=== PATIENT | female | born 1960 | race American Indian/Alaskan Native ===

== ENCOUNTER 2018-08-27 15:58 | Inpatient (IN) | payer MEDICAID ==
--- NOTE | 2018-08-27 16:22 | Emergency Department Report ---
Blank Doc - Documentation Documentation: 58 y o female with GLF that happened today states she was sitting down on a chair and had a syncopa; episode head abrasions HEAD CT, labs main
[2018-08-27] MEDS ORDERED: XYLOCAINE 2% INFILTRATI ONE (16:46)
[2018-08-27] MEDS ORDERED: NACL 0.9% IR ONE (16:46)
--- NOTE | 2018-08-27 16:48 | Emergency Department Report ---
ED General Adult HPI - General Chief complaint: Head Injury Stated complaint: FACE INJURY Time Seen by Provider: 08/27/18 16:16 Source: patient, family, RN notes reviewed, old records reviewed Mode of arrival: Ambulatory Limitations: Physical Limitation, Other (patient is hard of hearing. Patient is a poor historian. Family is poor historian.) - History of Present Illness Initial comments: Primary care Dr.: Dr. Matthews : Past medical history: Schizophrenia, hypertension, high cholesterol, question COPD versus asthma, question neuropathic pain, she does not know her past medical history. Her son does not know her past medical history. Patient also very hard of hearing. This is a 58-year-old female. The patient is not known to this provider previously. The patient presents to the emergency room after unresponsive event and complaint of syncope. Patient states she was sitting down, and then lost consciousness. She states that her bilateral knees have been hurting her. She cannot describe the nature of the pain. She cannot describe radiation of the pain. She cannot describe exacerbating or relieving factors. She reports that she was sitting down and that she "fell out." She endorses a headache and chest pain. She indicates the headache is right- sided, but points the left side of her head. She cannot describe the nature of her headache. She cannot describe how quickly the headache started. She indicates no neck pain. She complains of chest pain. She points to the center of her chest. She thinks the chest pain has been present since this morning. She is not certain. She is not able to describe the nature of her chest pain. She denies shortness of breath. She denies abdominal pain. She denies urinary symptoms. She denies fevers, rash. Patient admitted to this hospital in 2015 for unprovoked syncope. Had unremarkable echocardiogram, an unremarkable duplex. She had an elevated d- dimer, but did not appear to be further evaluated. Patient does not know her medications. Her son, who is at the bedside, does not think that her medications haven't changed or adjusted recently, and he is not certain. As per old medical records, completed tetanus vaccination series in 2015. -: Sudden Location: head, chest Radiation: other Quality: other Consistency: other Improves with: other Worsens with: other Associated Symptoms: confusion, chest pain, headaches, syncope - Related Data Home Medications Medication Instructions Recorded Confirmed Last Taken Albuterol Sulfate [Proventil Hfa] 1 puff IH TID PRN 08/27/18 08/27/18 Unknown Benztropine 2 mg PO DAILY 08/27/18 08/27/18 Unknown Cariprazine HCl [Vraylar] 4.5 mg PO DAILY 08/27/18 08/27/18 Unknown Citalopram [celeXA] 20 mg PO QDAY 08/27/18 08/27/18 Unknown Fesoterodine Fumarate ER [Toviaz 4 mg PO DAILY 08/27/18 08/27/18 Unknown ER] Furosemide [Lasix TAB] 40 mg PO QDAY 08/27/18 08/27/18 Unknown Gabapentin [Neurontin] 300 mg PO BID 08/27/18 08/27/18 Unknown Paliperidone Palmitate(Nf) [Invega 234 mg IM Q3W 08/27/18 08/27/18 Unknown Sustenna(Nf)] Potassium Chloride [K-Dur] 20 meq PO QDAY 08/27/18 08/27/18 Unknown Ranitidine HCl [Zantac] 150 mg PO DAILY 08/27/18 08/27/18 Unknown Sertraline [Zoloft] 50 mg PO QDAY 08/27/18 08/27/18 Unknown Simvastatin 20 mg PO DAILY 08/27/18 08/27/18 Unknown chlorproMAZINE [Thorazine] 50 mg PO BID 08/27/18 08/27/18 Unknown Allergies Allergy/AdvReac Type Severity Reaction Status Date / Time No Known Allergies Allergy Verified 08/27/18 16:08 ED Review of Systems ROS: Stated complaint: FACE INJURY Other details as noted in HPI Comment: Unobtainable due to pts medical conditions Constitutional: denies: fever Eyes: denies: eye discharge ENT: denies: congestion Respiratory: denies: cough Cardiovascular: chest pain, syncope Gastrointestinal: denies: vomiting Genitourinary: denies: dysuria Musculoskeletal: joint swelling Skin: lesions, other (abrasions, nasal laceration) Neurological: headache, weakness, confusion Psychiatric: anxiety ED Past Medical Hx - Past Medical History Previous Medical History?: Yes Hx Hypertension: Yes Hx Psychiatric Treatment: Yes (schizophrenia) Additional medical history: ALTURAS - Social History Smoking Status: Never Smoker - Medications Home Medications: Home Medications Medication Instructions Recorded Confirmed Last Taken Type Albuterol Sulfate [Proventil Hfa] 1 puff IH TID PRN 08/27/18 08/27/18 Unknown History Benztropine 2 mg PO DAILY 08/27/18 08/27/18 Unknown History Cariprazine HCl [Vraylar] 4.5 mg PO DAILY 08/27/18 08/27/18 Unknown History Citalopram [celeXA] 20 mg PO QDAY 08/27/18 08/27/18 Unknown History Fesoterodine Fumarate ER [Toviaz 4 mg PO DAILY 08/27/18 08/27/18 Unknown History ER] Furosemide [Lasix TAB] 40 mg PO QDAY 08/27/18 08/27/18 Unknown History Gabapentin [Neurontin] 300 mg PO BID 08/27/18 08/27/18 Unknown History Paliperidone Palmitate(Nf) [Invega 234 mg IM Q3W 08/27/18 08/27/18 Unknown History Sustenna(Nf)] Potassium Chloride [K-Dur] 20 meq PO QDAY 08/27/18 08/27/18 Unknown History Ranitidine HCl [Zantac] 150 mg PO DAILY 08/27/18 08/27/18 Unknown History Sertraline [Zoloft] 50 mg PO QDAY 08/27/18 08/27/18 Unknown History Simvastatin 20 mg PO DAILY 08/27/18 08/27/18 Unknown History chlorproMAZINE [Thorazine] 50 mg PO BID 08/27/18 08/27/18 Unknown History ED Physical Exam - General Limitations: No Limitations, Other (patient is a poor historian.) General appearance: alert, in no apparent distress - Head Head exam: Present: normocephalic, other (there is a frontal hematoma.) - Eye Eye exam: Present: normal appearance, PERRL, EOMI, other (visual acuity intact to finger counting, color perception, reading at a close distance). Absent: n ystagmus - ENT ENT exam: Present: normal orophraynx, mucous membranes moist, TM's normal bilaterally, normal external ear exam, other (there is no nasal septal hematoma. There is no hemotympanum.). Absent: normal exam (there is an anterior 1 cm linear nasal laceration) - Neck Neck exam: Present: normal inspection, full ROM. Absent: tenderness, meningismus - Respiratory Respiratory exam: Present: normal lung sounds bilaterally. Absent: respiratory distress - Cardiovascular Cardiovascular Exam: Present: regular rate, normal rhythm, normal heart sounds. Absent: bradycardia, tachycardia, irregular rhythm, systolic murmur, diastolic murmur, rubs, gallop - GI/Abdominal GI/Abdominal exam: Present: soft. Absent: distended, tenderness, guarding, rebound, rigid, pulsatile mass - Extremities Exam Extremities exam: Present: normal inspection, full ROM, other (2+ pulses noted in the bilateral upper, lower extremities. Compartments soft. No long bony tenderness. The pelvis is stable.). Absent: joint swelling, calf tenderness - Back Exam Back exam: Present: normal inspection, full ROM. Absent: tenderness, CVA tend erness (R), CVA tenderness (L), paraspinal tenderness, vertebral tenderness - Neurological Exam Neurological exam: Present: alert, other (Extraocular movements intact. Tongue midline. No facial droop. Facial sensation intact to light touch in the V1, V2, V3 distribution bilaterally. 5 and 5 strength in 4 extremities.. Sensation is intact to light touch in 4 extremities.). Absent: motor sensory deficit - Psychiatric Psychiatric exam: Present: flat affect - Skin Skin exam: Present: warm, abrasion, ecchymosis ED Course Vital Signs 08/27/18 08/27/18 16:18 19:00 Temperature 98.3 F 98 F Pulse Rate 88 80 Respiratory 14 14 Rate Blood Pressure 108/66 Blood Pressure 134/68 [Right] O2 Sat by Pulse 97 99 Oximetry - Reevaluation(s) Reevaluation #1: 08/27/18 18:19 Differential diagnosis, including not limited to: Orthostasis, vagal event, structural cardiac disease, pneumonia, pulmonary embolus, acute coronary syndrome, intracranial injury, cervical spine injury, urinary tract infection, thyroid derangement, superficial abrasions, laceration Assessment and plan: 58-year-old female, poor historian, with episode of syncope, chest pain, headache. Patient is alert to name, follows commands, and currently has an NIH score of 0. GCS of 15. Does not appear to be clinically intoxicated. Most likely poor historian, and probable chronic disorganization likely secondary to chronic psychiatric disease. She is not tachycardic and she is not hypoxic. However, given her unexplained syncope, history o elevated d-dimer, we will obtain CT scan of the chest to exclude pulmonary embolus. We will obtain CT scan of the brain, cervical spine to exclude traumatic disease. Screening laboratory studies have been requested, and so far are unremarkable. EKG nonspecific, abnormal, appears unchanged from prior. Urinalysis, CBC is pending. Laceration is repaired. I have discussed that we recommended medical admission to the hospital once for diagnostics have resulted, assuming no traumatic injuries identified that would require transfer. This was specifically discussed with the patient's son, who verbalized understanding. Reevaluation #2: 08/27/18 18:[address] scan of the brain shows no acute intracranial injury. Scalp hematoma noted, consistent with exam. X-ray the chest formally interpreted is unremarkable. Reevaluation #3: 08/27/18 19:48 CT scan of the chest negative for acute disease. Incidental findings noted. CT scan of the cervical spine negative for traumatic disease. Incidental findings noted. CT scan of the facial bones negative for significant findings, expected post traumatic findings noted. Resting comfortable, and in no acute distress. Hospital physician is paged to arrange admission. Reevaluation #4: 08/27/18 20:27 DR Ford to admit - EJ/Peripheral Line Arm L Time Out Performed: Yes Indications: nurses unable to establis Skin Cleansed in Sterile Fashion: Yes Size: 20 Dressing Placed: Tegaderm Patient Tolerated Procedure: well - Laceration /Wound Repair Upper Anterior Face Wound Location: face (proximal aspect of nose) Wound Length (cm): 1 Wound's Depth, Shape: linear, contused tissue Wound Explored: clean Irrigated w/ Saline (ccs): 250 Betadine Prep?: No Anesthesia: 1% Lidocaine Volume Anesthetic (ccs): 1 Wound Debrided: minimal Suture Size/Type: 5:0 Number of Sutures: 2 Layer Closure?: No Sterile Dressing Applied?: Yes ED Medical Decision Making - Lab Data Result diagrams: 08/27/18 18:14 08/27/18 17:12 Vital Signs 08/27/18 16:18 Temperature 98.3 F Pulse Rate 88 Respiratory 14 Rate Blood Pressure 108/66 O2 Sat by Pulse 97 Oximetry Lab Results 08/27/18 08/27/18 08/27/18 Range/Units 17:12 17:12 17:12 PT 13.0 (12.2-14.9) Sec. INR 0.93 (0.87-1.13) APTT 20.0 L (24.2-36.6) Sec. Sodium 134 L (137-145) mmol/L Potassium 4.7 (3.6-5.0) mmol/L Chloride 103.7 (98-107) mmol/L Carbon Dioxide 20 L (22-30) mmol/L Anion Gap 15 mmol/L BUN 16 (7-17) mg/dL Creatinine 0.9 (0.7-1.2) mg/dL Estimated GFR > 60 ml/min BUN/Creatinine Ratio 18 % Glucose 103 H (65-100) mg/dL Calcium 8.6 (8.4-10.2) mg/dL Magnesium (1.7-2.3) mg/dL Total Creatine Kinase (30-135) units/L Troponin T (0.00-0.029) ng/mL TSH (0.270-4.200) mlU/mL Salicylates (2.8-20.0) mg/dL Acetaminophen (10.0-30.0) ug/mL Plasma/Serum Alcohol < 0.01 (0-0.07) % 08/27/18 08/27/18 08/27/18 Range/Units 17:17 17:17 17:17 PT (12.2-14.9) Sec. INR (0.87-1.13) APTT (24.2-36.6) Sec. Sodium (137-145) mmol/L Potassium (3.6-5.0) mmol/L Chloride (98-107) mmol/L Carbon Dioxide (22-30) mmol/L Anion Gap mmol/L BUN (7-17) mg/dL Creatinine (0.7-1.2) mg/dL Estimated GFR ml/min BUN/Creatinine Ratio % Glucose (65-100) mg/dL Calcium (8.4-10.2) mg/dL Magnesium 1.90 (1.7-2.3) mg/dL Total Creatine Kinase 59 (30-135) units/L Troponin T < 0.010 (0.00-0.029) ng/mL TSH 1.190 (0.270-4.200) mlU/mL Salicylates < 0.3 L (2.8-20.0) mg/dL Acetaminophen (10.0-30.0) ug/mL Plasma/Serum Alcohol (0-0.07) % 08/27/18 Range/Units 17:17 PT (12.2-14.9) Sec. INR (0.87-1.13) APTT (24.2-36.6) Sec. Sodium (137-145) mmol/L Potassium (3.6-5.0) mmol/L Chloride (98-107) mmol/L Carbon Dioxide (22-30) mmol/L Anion Gap mmol/L BUN (7-17) mg/dL Creatinine (0.7-1.2) mg/dL Estimated GFR ml/min BUN/Creatinine Ratio % Glucose (65-100) mg/dL Calcium (8.4-10.2) mg/dL Magnesium (1.7-2.3) mg/dL Total Creatine Kinase (30-135) units/L Troponin T (0.00-0.029) ng/mL TSH (0.270-4.200) mlU/mL Salicylates (2.8-20.0) mg/dL Acetaminophen < 5.0 L (10.0-30.0) ug/mL Plasma/Serum Alcohol (0-0.07) % - EKG Data -: EKG Interpreted by Me EKG shows normal: sinus rhythm Rate: normal - EKG Data 08/27/18 18:22 EKG shows normal sinus, 80 beats minute, normal axis, QTC within normal limits, atrial enlargement, abnormal EKG, not consistent with ST elevation myocardial infarction, unchanged from prior EKG from December 2014. - Radiology Data Radiology results: image reviewed interpreted by me: X-ray the chest appears to be unremarkable. Print Report Referring Physician: SETH TORRES Patient Name: NISHA SELF Date of : 1960 Sex: Female Report Date: 2018-08-27 Report Status: Finalized Findings [address] [address] Cat Scan Report Signed Patient: NISHA SELF MR#: [id number] : 1960 Acct:[id number] Age/Sex: 58 / F ADM Date: 08/27/18 Loc: ED Attending Dr: Ordering Physician: SETH TORRES MD Date of Service: 08/27/18 Procedure(s): CT facial bones wo con Accession Number(s): [id number] cc: SETH TORRES MD PROCEDURE: CT FACIAL BONES WO CON TECHNIQUE: Spiral CT imaging of the facial bones was obtained without the use of IV contrast. Computer generated sagittal and coronal reconstructions were created. HISTORY: facial trauma. Pain. COMPARISONS: None FINDINGS: No acute facial fractures are identified. Soft tissue swelling is seen over the central aspect of the forehead. Small subcutaneous gas densities are seen adjacent to the nasal bone. There may be lacerations or puncture wound present. No definite fracture is seen in this location. The orbits, zygomas and zygomatic arches as well as the beatty of the paranasal sinuses and mandible appear intact. There is mild mucosal thickening and a small amount of fluid in the left maxillary sinus. I cannot exclude mild acute sinusitis. The paranasal sinuses otherwise are clear. IMPRESSION: No facial fractures are identified. Soft tissue swelling seen overlying the forehead as described. Small gas densities seen within the subcutaneous tissues near the bridge of the nose. There may be lacerations present. No foreign bodies or fracture is seen in this area. Left maxillary sinus disease as described. I cannot exclude mild acute sinusitis.. This document is electronically signed by Allen Cabral MD., August 27 2018 07:19:12 PM ET Transcribed By: DFN Dictated By: ALLEN CABRAL MD Electronically Authenticated By: ALLEN CABRAL MD Signed Date/Time: 08/27/181920 Critical care attestation.: If time is entered above; I have spent that time in minutes in the direct care of this critically ill patient, excluding procedure time. ED Disposition Clinical Impression: Syncope, Chest pain, Nasal laceration Disposition: OP ADMIT IP TO THIS HOSP Is pt being admited?: Yes Does the pt Need Aspirin: Yes Condition: Stable Instructions: Chest Pain (ED), Syncope (ED) Referrals: ELMO CLEMENTS MD [Primary Care Provider] - 3-5 Days
[2018-08-27] MEDS ORDERED: NACL 0.9% 500 ML 500 ML IV SCH (17:00)
[2018-08-27 17:50] LABS: INR 0.93 (0.87-1.13)
[2018-08-27 17:54] LABS: BUN/Creatinine Ratio 18; Blood Urea Nitrogen 16 mg/dL (7-17); Calcium 8.6 mg/dL (8.4-10.2); Hemolysis Index 29
--- NOTE | 2018-08-27 18:15 | XRay Report ---
PROCEDURE: XR CHEST 1V AP TECHNIQUE: Chest radiograph single view. HISTORY: cp syncope COMPARISONS: None . FINDINGS: Single frontal view of the chest was acquired. The heart is mildly large. There is no evide nce of congestive heart failure. There is no consolidative pulmonary infiltrate. IMPRESSION: Cardiomegaly. Otherwise, no active disease in the chest This document is electronically signed by Maurizio Payton MD., August 27 2018 06:13:31 PM ET
--- NOTE | 2018-08-27 18:18 | Cat Scan Report ---
PROCEDURE: CT head without contrast. TECHNIQUE: Computerized tomography of the head was performed without contrast material. CT DOSE LENGTH PRODUCT: 838.1 mGycm HISTORY: head injury COMPARISONS: None. FINDINGS: The ventricles are normal in size. The rahman matter and white matter appear normal. There is minimal e vidence of chronic ischemic white matter disease. There are no mass lesions. There is no intracranial hemorrhage. The calvarium appears intact. The mastoid air cells and paranasal sinuses are clear as f ar as visualized. There is a small contusion in the frontal scalp. IMPRESSION: Normal study of the brain for age. Small frontal scalp contusion. This document is electronically signed by Jadiel Acosta MD., August 27 2018 06:16:51 PM ET
[2018-08-27] MEDS ORDERED: ANTIBIOTIC OINT TP STA (18:23)
[2018-08-27 18:29] LABS: Hematocrit 32.8 % (30.3-42.9); Hemoglobin 10.9 gm/dl (10.1-14.3); Mean Corpuscular HGB Conc 33 % (30-34); Mean Corpuscular Volume 93 fl (79-97); Platelet Count 123 K/mm3 (140-440); Red Blood Count 3.53 M/mm3 (3.65-5.03); Red Cell Distribution Width 15.3 % (13.2-15.2)
--- NOTE | 2018-08-27 19:21 | Cat Scan Report ---
PROCEDURE: CT FACIAL BONES WO CON TECHNIQUE: Spiral CT imaging of the facial bones was obtained without the use of IV contrast. Comput er generated sagittal and coronal reconstructions were created. HISTORY: facial trauma. Pain. COMPARISONS: None FINDINGS: No acute facial fractures are identified. Soft tissue swelling is seen over the central aspect of the forehead. Small subcutaneous gas densities are seen adjacent to the nasal bone. There may be lacerat ions or puncture wound present. No definite fracture is seen in this location. The orbits, zygomas and zygomatic arches as well as the beatty of the paranasal sinuses and mandible a ppear intact. There is mild mucosal thickening and a small amount of fluid in the left maxillary sinus. I cannot ex clude mild acute sinusitis. The paranasal sinuses otherwise are clear. IMPRESSION: No facial fractures are identified. Soft tissue swelling seen overlying the forehead as described. Small gas densities seen within the subcutaneous tissues near the bridge of the nose. There may be la cerations present. No foreign bodies or fracture is seen in this area. Left maxillary sinus disease as described. I cannot exclude mild acute sinusitis.. This document is electronically signed by Allen Sifuentes MD., August 27 2018 07:19:12 PM ET
--- NOTE | 2018-08-27 19:31 | Cat Scan Report ---
PROCEDURE: CT ANGIO CHEST TECHNIQUE: Computerized tomographic angiography of the chest was performed during the IV injection o f iodinated nonionic contrast including image processing. The image data was postprocessed using 2-d imensional multiplanar reformatted (MPR) and 3-dimensional (MIP and/or volume rendered) techniques. A utomated exposure control, adjustment of mA and/or kV according to patient size, or iterative reconst ruction dose optimization techniques were utilized. CT DOSE LENGTH PRODUCT: 684.6 mGycm HISTORY: cp syncope COMPARISONS: None . FINDINGS: Pulmonary out flow tract, right and left main pulmonary arteries and the approximal branches: Clear, no filling defects seen to suggest pulmonary embolus. Pericardium: No evidence of pericardial effusion. Thoracic aorta: No evidence of aneurysmal dilatation or dissection. Coronary arteries: Unremarkable. Mediastinum and hilar regions: Non specific subcentimeter lymph nodes are visualized. No pathologica lly enlarged lymph nodes or masses are identified. Lung Butler: There appears to be a small amount of dependent atelectasis and possibly mild fibrosis. No dense consolidations or masses are seen. No effusions are identified.. Upper abdomen: Multiple calcified granulomas seen scattered in the spleen. Low-density nodules are s cattered in the liver. These are all similar appearance and I suspect represent hepatic cysts. The la rgest is in the right lobe anteriorly measuring 1.9 cm greatest diameter. There is a heterogeneous ar ea of decreased density seen in the right lobe of the liver anteriorly superiorly image 74 series 2. This has ill-defined margins. This extends over approximately 3 cm. Etiology is uncertain. Other: No acute bone abnormalities are seen. IMPRESSION: No evidence of pulmonary embolus. Small amount of dependent atelectasis and possibly mild fibrosis visualized. No dense consolidations are visualized. Prior granulomatous disease. Multiple hepatic cysts are suspected. Ill-defined 3 cm area of decreased density seen right lobe of t he liver superiorly and anteriorly. This could represent focal fibrosis. Other masses cannot be exclu ded. Consider follow-up dynamic contrast enhanced CT scan of the liver, ultrasound or MRI. This document is electronically signed by Allen Sifuentes MD., August 27 2018 07:29:17 PM ET
--- NOTE | 2018-08-27 19:35 | Cat Scan Report ---
PROCEDURE: CT CERVICAL SPINE WO CON TECHNIQUE: Computerized tomography of the cervical spine was performed from the skull base to T1 wit hout contrast material. CT DOSE LENGTH PRODUCT: 471.5 mGycm HISTORY: facial trauma . Pain. COMPARISONS: None . FINDINGS: No fracture or subluxation is visualized. Posterior elements are intact. Mild to moderate facet arthr itis visualized mid cervical spine. Prevertebral soft tissues appear normal. There is disc space narr owing from C3-C4 to the C6/C7 level. Anterior osteophytic spurs are present at each of these levels. Smaller posterior osteophytic spurs are visualized at C3-4 and C4-5. No focal disc herniation or spin al stenosis is visualized. Impression: Degenerative disc disease and facet arthritis as described. No fracture or subluxation is identified. This document is electronically signed by Allen Sifuentes MD., August 27 2018 07:33:58 PM ET
[2018-08-27] MEDS ORDERED: BABY ASPIRIN PO ONE (19:49)
[2018-08-27] MEDS ORDERED: ROCEPHIN IM ONE (21:23)
[2018-08-28] MEDS ORDERED: ZOFRAN IV PRN (02:28)
[2018-08-28] MEDS ORDERED: MILK OF MAGNESIA PO PRN (02:28)
[2018-08-28] MEDS ORDERED: TYLENOL PO PRN ×2 (02:28→13:00)
[2018-08-28] MEDS ORDERED: SODIUM CHLORIDE FLUSH SYRINGE 10 ML INJ PRN (02:28)
[2018-08-28] MEDS ORDERED: SODIUM CHLORIDE FLUSH SYRINGE 10 ML IV PRN ×2 (02:28→12:30)
--- NOTE | 2018-08-28 02:28 | History and Physical Report ---
History of Present Illness Date of examination: 08/27/18 Date of admission: 08/27/2018 Chief complaint: Syncope History of present illness: Patient is a 58-year-old female was brought to the ER by EMS after she fell at home, she presented with a frontal and nasal laceration which required suturing. Patient was awake and alert on admission, but she was unable to provide medical history due to dementia, she could not recall exactly the circumstances that brought her to the hospital, she remember falling in the concrete floor, she was unable to stand up and her son found her on the floor. Pt was alert and oriented to name only, she was disoriented to time, place and current events, no family member was available to provide medical history, except for her m edication list sent by her son to EMS. Past History Past Medical History: arthritis, COPD, hypertension, hyperlipidemia, other (obesity,) Past Surgical History: No surgical history Social history: no significant social history Family history: no significant family history Medications and Allergies Allergies Allergy/AdvReac Type Severity Reaction Status Date / Time No Known Allergies Allergy Verified 08/27/18 16:08 Home Medications Medication Instructions Recorded Confirmed Last Taken Type Albuterol Sulfate [Proventil Hfa] 1 puff IH TID PRN 08/27/18 08/27/18 Unknown History Benztropine 2 mg PO DAILY 08/27/18 08/27/18 Unknown History Cariprazine HCl [Vraylar] 4.5 mg PO DAILY 08/27/18 08/27/18 Unknown History Citalopram [celeXA] 20 mg PO QDAY 08/27/18 08/27/18 Unknown History Fesoterodine Fumarate ER [Toviaz 4 mg PO DAILY 08/27/18 08/27/18 Unknown History ER] Furosemide [Lasix TAB] 40 mg PO QDAY 08/27/18 08/27/18 Unknown History Gabapentin [Neurontin] 300 mg PO BID 08/27/18 08/27/18 Unknown History Paliperidone Palmitate(Nf) [Invega 234 mg IM Q3W 08/27/18 08/27/18 Unknown History Sustenna(Nf)] Potassium Chloride [K-Dur] 20 meq PO QDAY 08/27/18 08/27/18 Unknown History Ranitidine HCl [Zantac] 150 mg PO DAILY 08/27/18 08/27/18 Unknown History Sertraline [Zoloft] 50 mg PO QDAY 08/27/18 08/27/18 Unknown History Simvastatin 20 mg PO DAILY 08/27/18 08/27/18 Unknown History chlorproMAZINE [Thorazine] 50 mg PO BID 08/27/18 08/27/18 Unknown History Review of Systems ROS unobtainable: due to mental status Exam - Constitutional Vitals: Temp Pulse Resp BP Pulse Ox 98 F 80 14 134/68 99 08/27/18 19:00 08/27/18 19:00 08/27/18 19:00 08/27/18 19:00 08/27/18 19:00 General appearance: Present: no acute distress - EENT Eyes: Present: EOM intact ENT: hearing intact - Neck Neck: Present: normal ROM - Respiratory Respiratory effort: normal Respiratory: bilateral: diminished - Cardiovascular Heart Sounds: Present: S1 & S2 - Extremities Extremities: no ischemia Peripheral Pulses: within normal limits - Abdominal General gastrointestinal: Present: deferred, non-tender, non-distended Female genitourinary: Present: deferred - Rectal Rectal Exam: deferred - Musculoskeletal Musculoskeletal: strength equal bilaterally - Psychiatric Psychiatric: cooperative - Neurologic Neurologic: moves all extremities Results - Labs CBC & Chem 7: 08/27/18 18:14 08/27/18 17:12 Labs: Laboratory Last Values WBC 3.0 K/mm3 (4.5-11.0) L 08/27/18 18:14 RBC 3.53 M/mm3 (3.65-5.03) L 08/27/18 18:14 Hgb 10.9 gm/dl (10.1-14.3) 08/27/18 18:14 Hct 32.8 % (30.3-42.9) 08/27/18 18:14 MCV 93 fl (79-97) 08/27/18 18:14 MCH 31 pg (28-32) 08/27/18 18:14 MCHC 33 % (30-34) 08/27/18 18:14 RDW 15.3 % (13.2-15.2) H 08/27/18 18:14 Plt Count 123 K/mm3 (140-440) L 08/27/18 18:14 Lymph % (Auto) Illustrator Set 08/27/18 18:14 [place] % (Auto) Illustrator Set 08/27/18 18:14 Eos % (Auto) Illustrator Set 08/27/18 18:14 Baso % (Auto) Illustrator Set 08/27/18 18:14 Lymph # Illustrator Set 08/27/18 18:14 [place] # Illustrator Set 08/27/18 18:14 Eos # Illustrator Set 08/27/18 18:14 Baso # Illustrator Set 08/27/18 18:14 Seg Neutrophils % Illustrator Set 08/27/18 18:14 Seg Neutrophils # Illustrator Set 08/27/18 18:14 PT 13.0 Sec. (12.2-14.9) 08/27/18 17:12 INR 0.93 (0.87-1.13) 08/27/18 17:12 APTT 20.0 Sec. (24.2-36.6) L 08/27/18 17:12 Sodium 134 mmol/L (137-145) L 08/27/18 17:12 Potassium 4.7 mmol/L (3.6-5.0) 08/27/18 17:12 Chloride 103.7 mmol/L (98-107) 08/27/18 17:12 Carbon Dioxide 20 mmol/L (22-30) L 08/27/18 17:12 15 mmol/L 08/27/18 17:12 BUN 16 mg/dL (7-17) 08/27/18 17:12 0.9 mg/dL (0.7-1.2) 08/27/18 17:12 Estimated GFR > 60 ml/min 08/27/18 17:12 18 % 08/27/18 17:12 Glucose 103 mg/dL (65-100) H 08/27/18 17:12 Calcium 8.6 mg/dL (8.4-10.2) 08/27/18 17:12 Magnesium 1.90 mg/dL (1.7-2.3) 08/27/18 17:17 59 units/L (30-135) 08/27/18 17:17 < 0.010 ng/mL (0.00-0.029) 08/27/18 17:17 TSH 1.190 mlU/mL (0.270-4.200) 08/27/18 17:17 Salicylates < 0.3 mg/dL (2.8-20.0) L 08/27/18 17:17 Acetaminophen < 5.0 ug/mL (10.0-30.0) L 08/27/18 17:17 Plasma/Serum Alcohol < 0.01 % (0-0.07) 08/27/18 17:12 Assessment and Plan Assessment and plan: 1. Acute syncopal episodes (etiology unclear) 2. Hypertension 3. COPD 4. CHF (EF unknown) 5. Osteoarthritis 6. Peripheral neuropathy 7. Dementia 8. Gait instability Plan: Patient is admitted for syncopal episodes CT scan pending MRI of brain to follow up CT Bilateral carotid Doppler study MRI/MRA of the head and neck Orthostatic vital signs every shift PT to eval for gait instability Case management for discipline Resume home meds Plan discussed with patient but need reinforcement Advance Directives: Yes VTE prophylaxis?: Mechanical Plan of care discussed with patient/family: Yes
[2018-08-28] MEDS ORDERED: PHENERGAN PR PRN (02:56)
[2018-08-28] MEDS ORDERED: PHENERGAN PO PRN (02:56)
[2018-08-28] MEDS ORDERED: NACL 0.9% 1000 ML 1,000 ML IV SCH (03:00)
[2018-08-28] MEDS: ROCEPHIN/NS 1 GM/50 ML 1 GM/50 ML BAG IV SCH ×2 (03:07→21:47)
[2018-08-28 04:23] LABS: Bacteria,Urine 1+ /HPF (Negative); Bilirubin,Urine NEG (Negative); Blood,Urine NEG (Negative); Color,Urine Straw (Yellow); Mucus,Urine FEW /HPF; Protein,Urine <15 mg/dL mg/dL (Negative); RBC,Urine < 1.0 /HPF (0.0-6.0); Urobilinogen,Urine < 2.0 mg/dL (<2.0)
[2018-08-28] MEDS ORDERED: PALIPERIDONE PALMITATE 234 MG IM SCH (06:45)
[2018-08-28] MEDS ORDERED: NON-FORMULARY (Ranitidine Hcl [Zantac] 150 MG) PO SCH (10:00)
[2018-08-28] MEDS ORDERED: NON-FORMULARY (Simvastatin [Simvastatin] 20 MG) PO SCH (10:00)
[2018-08-28] MEDS ORDERED: CARIPRAZINE HCL 4.5 MG PO SCH (10:00)
[2018-08-28] MEDS ORDERED: FESOTERODINE FUMARATE 4 MG PO SCH (10:00)
[2018-08-28] MEDS ORDERED: PEPCID PO SCH (10:00)
[2018-08-28] MEDS ORDERED: BENZTROPINE 2 MG PO SCH (10:00)
--- NOTE | 2018-08-28 11:19 | Vascular Lab Report ---
PROCEDURE: VL CAROTID DUPLEX BILAT TECHNIQUE: Carotid duplex Doppler ultrasound. Grayscale, color flow and spectral waveform images wer e obtained. HISTORY: stroke COMPARISON: None FINDINGS: There is mild to moderate smooth plaque in common and internal carotid arteries bilaterally. On the right there is mildly elevated flow velocity distal ICA measured at 173 cm/s. This suggests IC A stenosis of 50-79% On the left there is elevated velocity distal ICA measured at 212 cm/s. This is also suggestive of IC A stenosis of 50-79%. Vertebral artery flow is antegrade bilaterally. IMPRESSION: There is smooth plaque bilaterally. There are elevated velocities in bilateral distal in ternal carotid arteries suggesting distal ICA stenoses of 50-79%. This document is electronically signed by Lucero Garcia MD., August 28 2018 11:17:29 AM ET
[2018-08-28] MEDS ORDERED: PNEUMOVAX 23 IM ONE (12:00)
[2018-08-28] MEDS ORDERED: AFLURIA QUAD 2018-2019 SYRINGE IM ONE (12:00)
--- NOTE | 2018-08-28 12:06 | Event Note ---
Date: 08/28/18 This is a follow-up from an admission earlier this morning. Patient seen and examined. We will continue the plans as outlined in H&P. Total visit time 26 minutes with greater than 50% spent on coordination of care and counseling.
[2018-08-28] MEDS ORDERED: PROVENTIL IH PRN (12:25)
[2018-08-28] MEDS: K-DUR PO SCH (13:15)
[2018-08-28] MEDS: LASIX PO SCH (13:15)
[2018-08-28] MEDS: celeXA PO SCH (13:15)
[2018-08-28] MEDS: ASPIRIN PO SCH (13:15)
[2018-08-28] MEDS: PEPCID PO SCH ×2 (13:16→21:46)
[2018-08-28] MEDS: ZOLOFT PO SCH (13:16)
[2018-08-28] MEDS: SODIUM CHLORIDE FLUSH SYRINGE 10 ML IV SCH ×2 (13:16→21:47)
[2018-08-28] MEDS: HEPARIN SUB-Q SCH ×2 (13:16→21:47)
[2018-08-28] MEDS: NEURONTIN PO SCH ×2 (13:16→21:46)
[2018-08-28] MEDS: DUONEB *Not for PRN Use IH SCH ×2 (13:51→20:46)
[2018-08-28] MEDS: COGENTIN PO SCH (18:12)
[2018-08-28] MEDS: THORAZINE PO SCH ×2 (18:12→22:18)
[2018-08-28] MEDS: PRAVACHOL PO SCH (21:46)
[2018-08-29] MEDS: DUONEB *Not for PRN Use IH SCH ×4 (02:42→21:09)
[2018-08-29 06:35] LABS: Chol/HDL Ratio 3.76 %
--- NOTE | 2018-08-29 09:43 | Discharge Summary ---
Providers - Providers Date of Admission: 08/28/18 10:28 Date of discharge: 08/30/18 Attending physician: ESTRADA SINGLETON 08/28/18 02:29 Occupational Therapy Evaluate and Treat [CONS] Routine Comment: Reason For Exam: Neuro deficits Physical Therapy Evaluation and Treat [CONS] Routine Comment: Reason For Exam: Neuro deficits 08/28/18 08:48 Consult to Case Management [CONS] Routine Services Needed at Discharge: Home Health Services Notified:: case management Additional Physician Instructions: dc plan Consult to Dietitian/Nutrition [CONS] Routine Physician Instructions: Reason For Exam: Reason for Consult: Nutrition Recommendations Reason for Consult: Diet education Occupational Therapy Evaluate and Treat [CONS] Routine Comment: Reason For Exam: Neuro deficits Physical Therapy Evaluation and Treat [CONS] Routine Comment: Reason For Exam: Neuro deficits [facility] Reason for admission: syncope Condition: Stable Hospital course: Patient is a 58-year-old female was brought to the ER by EMS after she fell at home, she presented with a frontal and nasal laceration which required suturing. Patient was awake and alert on admission, but she was unable to provide medical history due to dementia, she could not recall exactly the circumstances that brought her to the hospital, she remember falling in the concrete floor, she was unable to stand up and her son found her on the floor. Pt was alert and oriented to name only, she was disoriented to time, place and current events, no family member was available to provide medical history, except for her medication list sent by her son to EMS. The patient was admitted to the hospital with a diagnosis of syncope. The patient underwent syncope workup with Echocardiogram that reveals left ventricular chamber size and contractility that is normal with EF 55-60% and left ventricular diastolic filling pattern consistent with elevated left ventricular end-diastolic pressure. Carotid Doppler does reveal smooth plaque bilaterally with bilateral distal internal carotid artery suggesting ICA stenosis of 50-79%. CTA of the chest was negative for PE but did reveal hepatic cysts. Disposition: [id number] HOME UND[facility] Core Measure Documentation - Palliative Care Palliative Care/ Comfort Measures: Not Applicable - Core Measures Any of the following diagnoses?: none Exam - Constitutional Vitals: Temp Pulse Resp BP Pulse Ox 97.4 F L 84 17 115/62 98 08/29/18 07:21 08/29/18 08:01 08/29/18 08:01 08/29/18 07:21 08/29/18 04:21 Plan Activity: advance as tolerated Weight Bearing Status: Weight Bear as Tolerated Follow up with: THELMA JEFFERSON MD [Staff Physician] - 7 Days MULVANE ELMO KHANNA MD [Primary Care Provider] - 3-5 Days Prescriptions: Aspirin EC 81 mg PO QDAY #30 tablet.
[2018-08-29] MEDS: SODIUM CHLORIDE FLUSH SYRINGE 10 ML IV SCH ×2 (10:00→22:06)
[2018-08-29] MEDS: LASIX PO SCH (12:12)
[2018-08-29] MEDS: celeXA PO SCH (12:12)
[2018-08-29] MEDS: THORAZINE PO SCH ×2 (12:13→22:06)
[2018-08-29] MEDS: ZOLOFT PO SCH (12:13)
[2018-08-29] MEDS: PEPCID PO SCH ×2 (12:13→22:06)
[2018-08-29] MEDS: NEURONTIN PO SCH ×2 (12:13→22:06)
[2018-08-29] MEDS: COGENTIN PO SCH (12:14)
[2018-08-29] MEDS: ASPIRIN PO SCH (12:19)
[2018-08-29] MEDS: K-DUR PO SCH (12:20)
[2018-08-29] MEDS: HEPARIN SUB-Q SCH ×2 (12:26→22:05)
--- NOTE | 2018-08-29 12:57 | Progress Note ---
Assessment and Plan Assessment and plan: Syncope. Follow-up echocardiogram and carotid ultrasound. Hypertension. Continue his medications. COPD. Compensated. Continue breathing treatments as needed. CHF. Compensated. Peripheral neuropathy. Gait instability. PT evaluation. Disposition. Await PT recommendations History Interval history: No new issues overnight. Hospitalist Physical - Constitutional Vitals: Temp Pulse Resp BP Pulse Ox 98.7 F 84 18 122/70 98 08/29/18 11:27 08/29/18 08:01 08/29/18 11:27 08/29/18 11:27 08/29/18 04:21 General appearance: Present: no acute distress - EENT Eyes: Present: PERRL, EOM intact ENT: hearing intact, clear oral mucosa, dentition normal - Neck Neck: Present: supple, normal ROM - Respiratory Respiratory effort: normal Respiratory: bilateral: CTA - Cardiovascular Rhythm: regular Heart Sounds: Present: S1 & S2. Absent: gallop, rub - Extremities Extremities: no ischemia, No edema, Full ROM - Abdominal General gastrointestinal: soft, non-tender, non-distended, normal bowel sounds - Integumentary Integumentary: Present: clear, warm, dry - Neurologic Neurologic: CNII-XII intact, moves all extremities Results - Labs CBC & Chem 7: 08/27/18 18:14 08/27/18 17:12 Labs: Laboratory Last Values WBC 3.0 K/mm3 (4.5-11.0) L 08/27/18 18:14 RBC 3.53 M/mm3 (3.65-5.03) L 08/27/18 18:14 Hgb 10.9 gm/dl (10.1-14.3) 08/27/18 18:14 Hct 32.8 % (30.3-42.9) 08/27/18 18:14 MCV 93 fl (79-97) 08/27/18 18:14 MCH 31 pg (28-32) 08/27/18 18:14 MCHC 33 % (30-34) 08/27/18 18:14 RDW 15.3 % (13.2-15.2) H 08/27/18 18:14 Plt Count 123 K/mm3 (140-440) L 08/27/18 18:14 Lymph % (Auto) Funeral Attendant 08/27/18 18:14 [place] % (Auto) Funeral Attendant 08/27/18 18:14 Eos % (Auto) Funeral Attendant 08/27/18 18:14 Baso % (Auto) Funeral Attendant 08/27/18 18:14 Lymph # Funeral Attendant 08/27/18 18:14 [place] # Funeral Attendant 08/27/18 18:14 Eos # Funeral Attendant 08/27/18 18:14 Baso # Funeral Attendant 08/27/18 18:14 Seg Neutrophils % Funeral Attendant 08/27/18 18:14 Seg Neutrophils # Funeral Attendant 08/27/18 18:14 PT 13.0 Sec. (12.2-14.9) 08/27/18 17:12 INR 0.93 (0.87-1.13) 08/27/18 17:12 APTT 20.0 Sec. (24.2-36.6) L 08/27/18 17:12 Sodium 134 mmol/L (137-145) L 08/27/18 17:12 Potassium 4.7 mmol/L (3.6-5.0) 08/27/18 17:12 Chloride 103.7 mmol/L (98-107) 08/27/18 17:12 Carbon Dioxide 20 mmol/L (22-30) L 08/27/18 17:12 15 mmol/L 08/27/18 17:12 BUN 16 mg/dL (7-17) 08/27/18 17:12 0.9 mg/dL (0.7-1.2) 08/27/18 17:12 Estimated GFR > 60 ml/min 08/27/18 17:12 18 % 08/27/18 17:12 Glucose 103 mg/dL (65-100) H 08/27/18 17:12 Calcium 8.6 mg/dL (8.4-10.2) 08/27/18 17:12 Magnesium 1.90 mg/dL (1.7-2.3) 08/27/18 17:17 46 units/L (30-135) 08/28/18 12:31 CK-MB (CK-2) 2.0 ng/mL (0.0-4.0) 08/28/18 12:31 CK-MB (CK-2) Rel Index 4.3 (0-4) H 08/28/18 12:31 < 0.010 ng/mL (0.00-0.029) 08/28/18 12:31 Triglycerides 77 mg/dL (2-149) 08/29/18 04:55 Cholesterol 173 mg/dL (50-199) 08/29/18 04:55 109 mg/dL (50-130) 08/29/18 04:55 46 mg/dL (40-59) 08/29/18 04:55 3.76 % 08/29/18 04:55 TSH 1.190 mlU/mL (0.270-4.200) 08/27/18 17:17 Straw (Yellow) 08/27/18 19:02 Clear (Clear) 08/27/18 19:02 5.0 (5.0-7.0) 08/27/18 19:02 Ur Specific [place] 1.019 (1.003-1.030) 08/27/18 19:02 <15 mg/dl mg/dL (Negative) 08/27/18 19:02 Neg mg/dL (Negative) 08/27/18 19:02 Neg mg/dL (Negative) 08/27/18 19:02 Neg (Negative) 08/27/18 19:02 Pos (Negative) 08/27/18 19:02 Neg (Negative) 08/27/18 19:02 < 2.0 mg/dL (<2.0) 08/27/18 19:02 Ur Leukocyte Esterase Neg (Negative) 08/27/18 19:02 1.0 /HPF (0.0-6.0) 08/27/18 19:02 < 1.0 /HPF (0.0-6.0) 08/27/18 19:02 U Epithel Cells (Auto) 1.0 /HPF (0-13.0) 08/27/18 19:02 1+ /HPF (Negative) 08/27/18 19:02 Few /HPF 08/27/18 19:02 Salicylates < 0.3 mg/dL (2.8-20.0) L 08/27/18 17:17 Acetaminophen < 5.0 ug/mL (10.0-30.0) L 08/27/18 17:17 Plasma/Serum Alcohol < 0.01 % (0-0.07) 08/27/18 17:12 Active Medications - Current Medications Current Medications: Generic Name Dose Route Start Last Admin Trade Name Freq PRN Reason Stop Dose Admin Acetaminophen 650 mg 08/28/18 13:00 Tylenol PO Q4H PRN Pain, Mild (1-3) Albuterol 2.5 mg 08/28/18 12:25 Proventil IH Q3HRT PRN Shortness Of Breath Albuterol/Ipratropium 1 ampul 08/28/18 14:00 08/29/18 08:00 Duoneb *Not For Prn Use* IH 1 ampul Q6HRT UQE Administration Aspirin 325 mg 08/28/18 10:00 08/29/18 12:19 Aspirin PO 325 mg QDAY QUE Administration Benztropine Mesylate 2 mg 08/28/18 10:00 08/29/18 12:14 Cogentin PO 2 mg DAILY QUE Administration Chlorpromazine HCl 50 mg 08/28/18 10:00 08/29/18 12:13 Thorazine PO 50 mg BID QUE Administration Citalopram Hydrobromide 20 mg 08/28/18 10:00 08/29/18 12:12 Celexa PO 20 mg QDAY QUE Administration Famotidine 20 mg 08/28/18 10:00 08/29/18 12:13 Pepcid PO 20 mg BID QUE Administration Furosemide 40 mg 08/28/18 10:00 08/29/18 12:12 Lasix PO 40 mg QDAY QUE Administration Gabapentin 300 mg 08/28/18 10:00 08/29/18 12:13 Neurontin PO 300 mg BID QUE Administration Heparin Sodium (Porcine) 5,000 unit 08/28/18 10:00 08/29/18 12:26 Heparin SUB-Q 5,000 unit Q12HR QUE Administration Sodium Chloride 500 mls @ 50 mls/hr 08/27/18 17:00 Nacl 0.9% 500 Ml IV DIRECT QUE Ceftriaxone Sodium 1 gm in 50 mls @ 100 mls/hr 08/27/18 22:00 08/28/18 21:47 Rocephin/Ns 1 Gm/50 Ml IV 100 mls/hr Q24HR@2200 QUE Administration Magnesium Hydroxide 30 ml 08/28/18 02:28 Milk Of Magnesia PO Q4H PRN Constipation Miscellaneous Medication 4.5 mg 08/28/18 10:00 Cariprazine Hcl [Vraylar] PO DAILY QUE Miscellaneous Medication 4 mg 08/28/18 10:00 Fesoterodine Fumarate Er PO DAILY QUE Miscellaneous Medication 234 mg 08/28/18 06:45 Paliperidone Palmitate(Nf) IM Q3W QUE Ondansetron HCl 4 mg 08/28/18 02:28 Zofran IV Q8H PRN Nausea And Vomiting Potassium Chloride 20 meq 08/28/18 10:00 08/29/18 12:20 K-Dur PO 20 meq QDAY QUE Administration Pravastatin Sodium 40 mg 08/28/18 22:00 08/28/18 21:46 Pravachol PO 40 mg QHS QUE Administration Promethazine HCl 25 mg 08/28/18 02:56 Phenergan PO Q6H PRN Nausea And Vomiting Promethazine HCl 25 mg 08/28/18 02:56 Phenergan IL Q6H PRN Nausea And Vomiting Sertraline HCl 50 mg 08/28/18 10:00 08/29/18 12:13 Zoloft PO 50 mg QDAY QUE Administration Sodium Chloride 10 ml 08/28/18 10:00 08/28/18 21:47 Sodium Chloride Flush Syringe 10 Ml IV 10 ml BID QUE Administration Sodium Chloride 10 ml 08/28/18 12:30 Sodium Chloride Flush Syringe 10 Ml IV PRN PRN LINE FLUSH Nutrition/Malnutrition Assess - Dietary Evaluation Nutrition/Malnutrition Findings: Nutrition Notes Start: 08/28/18 15:25 Freq: Status: Active Protocol: Document 08/28/18 15:25 KEVIN (Rec: 08/28/18 15:27 [facility]- [id number]) Nutrition Notes Need for Assessment generated from: MD Order,Education Initial or Follow up Brief Note Other Pertinent Diagnosis s/p fall, syncopal episodes, dementia Current Diet Cardiac Subjective/Other Information RD consulted for diet education. Pt not appropriate for diet education at this time. Nutrition Intervention Follow-Up By: 08/31/18
[2018-08-29] MEDS: ROCEPHIN/NS 1 GM/50 ML 1 GM/50 ML BAG IV SCH (22:05)
[2018-08-29] MEDS: PRAVACHOL PO SCH (22:06)
[2018-08-30] MEDS: DUONEB *Not for PRN Use IH SCH (04:47)
[2018-08-30] MEDS: PEPCID PO SCH ×2 (09:35→21:45)
[2018-08-30] MEDS: NEURONTIN PO SCH ×2 (09:35→21:45)
[2018-08-30] MEDS: ASPIRIN PO SCH (09:35)
[2018-08-30] MEDS: K-DUR PO SCH (09:35)
[2018-08-30] MEDS: COGENTIN PO SCH (09:35)
[2018-08-30] MEDS: LASIX PO SCH (09:35)
[2018-08-30] MEDS: THORAZINE PO SCH ×2 (09:35→21:45)
[2018-08-30] MEDS: HEPARIN SUB-Q SCH ×2 (09:36→21:46)
[2018-08-30] MEDS: celeXA PO SCH (09:36)
[2018-08-30] MEDS: ZOLOFT PO SCH (09:36)
[2018-08-30] MEDS: SODIUM CHLORIDE FLUSH SYRINGE 10 ML IV SCH ×2 (09:36→21:46)
--- NOTE | 2018-08-30 12:16 | Magnetic Resonance Report ---
MRI BRAIN WITHOUT CONTRAST INDICATION: Stroke. COMPARISON: 08/27/[address] FINDINGS: Noncontrast multiplanar and multisequence MRI of the brain demonstrates normal ventricles and sulci without acute infarct, hemorrhage, mass effect or midline shift. No abnormal extra-axial masses or fluid collections. FLAIR and T2 weighted periventricular and deep white matter hyperintensities, greatest posterior frontoparietal as on axial series 7, images 16-18. Normal major intracranial vascular flow voids. Normal posterior fossa structures with symmetric seventh and eighth nerve complexes. Right cataract surgery. Mild left maxillary sinus mucosal thickening inferiorly. Slight bilateral ethmoid sinusitis also not excluded. Grossly clear remainder imaged paranasal sinuses and mastoid air cells. Normal midline structures without without evidence of Chiari malformation. Cervical spondylosis and leftward septal bowing incidentally seen. CONCLUSION: No acute intracranial MRI abnormality with various incidental findings, including microvascular changes and left maxillary sinusitis, as described. Thank you for the opportunity to participate in this patient's care.
--- NOTE | 2018-08-30 12:18 | Magnetic Resonance Report ---
MRA HEAD WITHOUT CONTRAST INDICATION: Stroke. COMPARISON: None similar. FINDINGS: MRA of the head performed without intravenous contrast and demonstrates no evidence of flow-limiting stenosis, occlusion or vascular malformation. Please note that detection of aneurysms less than 5 mm is limited on this exam. Left vertebral artery noted dominant and tortuous. CONCLUSION: Normal study of the [place]. Thank you for the opportunity to participate in this patient's care.
--- NOTE | 2018-08-30 12:59 | Progress Note ---
Assessment and Plan Assessment and plan: Syncope. Echocardiogram that reveals left ventricular chamber size and contractility that is normal with EF 55-60% and left ventricular diastolic filling pattern consistent with elevated left ventricular end-diastolic pressure. Carotid Doppler does reveal smooth plaque bilaterally with bilateral distal internal carotid artery suggesting ICA stenosis of 50-79%. ICA stenosis. Follow-up with vascular surgery as an outpatient. Hypertension. Continue his medications. COPD. Compensated. Continue breathing treatments as needed. CHF. Compensated. Peripheral neuropathy. Gait instability. Continue PT/OT Disposition. Physical therapy recommends subacute rehabilitation. History Interval history: No new issues overnight. Hospitalist Physical - Constitutional Vitals: Temp Pulse Resp BP Pulse Ox 98.4 F 94 H 18 99/62 96 08/30/18 07:24 08/30/18 04:42 08/30/18 07:24 08/30/18 07:24 08/30/18 04:42 General appearance: Present: no acute distress - EENT Eyes: Present: PERRL, EOM intact ENT: hearing intact, clear oral mucosa, dentition normal - Neck Neck: Present: supple, normal ROM - Respiratory Respiratory effort: normal Respiratory: bilateral: CTA - Cardiovascular Rhythm: regular Heart Sounds: Present: S1 & S2. Absent: gallop, rub - Extremities Extremities: no ischemia, No edema, Full ROM - Abdominal General gastrointestinal: soft, non-tender, non-distended, normal bowel sounds - Integumentary Integumentary: Present: clear, warm, dry - Neurologic Neurologic: CNII-XII intact, moves all extremities Results - Labs CBC & Chem 7: 08/27/18 18:14 08/27/18 17:12 Labs: Laboratory Last Values WBC 3.0 K/mm3 (4.5-11.0) L 08/27/18 18:14 RBC 3.53 M/mm3 (3.65-5.03) L 08/27/18 18:14 Hgb 10.9 gm/dl (10.1-14.3) 08/27/18 18:14 Hct 32.8 % (30.3-42.9) 08/27/18 18:14 MCV 93 fl (79-97) 08/27/18 18:14 MCH 31 pg (28-32) 08/27/18 18:14 MCHC 33 % (30-34) 08/27/18 18:14 RDW 15.3 % (13.2-15.2) H 08/27/18 18:14 Plt Count 123 K/mm3 (140-440) L 08/27/18 18:14 Lymph % (Auto) [employer] 08/27/18 18:14 [place] % (Auto) [employer] 08/27/18 18:14 Eos % (Auto) [employer] 08/27/18 18:14 Baso % (Auto) [employer] 08/27/18 18:14 Lymph # [employer] 08/27/18 18:14 [place] # [employer] 08/27/18 18:14 Eos # [employer] 08/27/18 18:14 Baso # [employer] 08/27/18 18:14 Seg Neutrophils % [employer] 08/27/18 18:14 Seg Neutrophils # [employer] 08/27/18 18:14 PT 13.0 Sec. (12.2-14.9) 08/27/18 17:12 INR 0.93 (0.87-1.13) 08/27/18 17:12 APTT 20.0 Sec. (24.2-36.6) L 08/27/18 17:12 Sodium 134 mmol/L (137-145) L 08/27/18 17:12 Potassium 4.7 mmol/L (3.6-5.0) 08/27/18 17:12 Chloride 103.7 mmol/L (98-107) 08/27/18 17:12 Carbon Dioxide 20 mmol/L (22-30) L 08/27/18 17:12 15 mmol/L 08/27/18 17:12 BUN 16 mg/dL (7-17) 08/27/18 17:12 0.9 mg/dL (0.7-1.2) 08/27/18 17:12 Estimated GFR > 60 ml/min 08/27/18 17:12 18 % 08/27/18 17:12 Glucose 103 mg/dL (65-100) H 08/27/18 17:12 Calcium 8.6 mg/dL (8.4-10.2) 08/27/18 17:12 Magnesium 1.90 mg/dL (1.7-2.3) 08/27/18 17:17 46 units/L (30-135) 08/28/18 12:31 CK-MB (CK-2) 2.0 ng/mL (0.0-4.0) 08/28/18 12:31 CK-MB (CK-2) Rel Index 4.3 (0-4) H 08/28/18 12:31 < 0.010 ng/mL (0.00-0.029) 08/28/18 12:31 Triglycerides 77 mg/dL (2-149) 08/29/18 04:55 Cholesterol 173 mg/dL (50-199) 08/29/18 04:55 109 mg/dL (50-130) 08/29/18 04:55 46 mg/dL (40-59) 08/29/18 04:55 3.76 % 08/29/18 04:55 TSH 1.190 mlU/mL (0.270-4.200) 08/27/18 17:17 Straw (Yellow) 08/27/18 19:02 Clear (Clear) 08/27/18 19:02 5.0 (5.0-7.0) 08/27/18 19:02 Ur Specific [place] 1.019 (1.003-1.030) 08/27/18 19:02 <15 mg/dl mg/dL (Negative) 08/27/18 19:02 Neg mg/dL (Negative) 08/27/18 19:02 Neg mg/dL (Negative) 08/27/18 19:02 Neg (Negative) 08/27/18 19:02 Pos (Negative) 08/27/18 19:02 Neg (Negative) 08/27/18 19:02 < 2.0 mg/dL (<2.0) 08/27/18 19:02 Ur Leukocyte Esterase Neg (Negative) 08/27/18 19:02 1.0 /HPF (0.0-6.0) 08/27/18 19:02 < 1.0 /HPF (0.0-6.0) 08/27/18 19:02 U Epithel Cells (Auto) 1.0 /HPF (0-13.0) 08/27/18 19:02 1+ /HPF (Negative) 08/27/18 19:02 Few /HPF 08/27/18 19:02 Salicylates < 0.3 mg/dL (2.8-20.0) L 08/27/18 17:17 Acetaminophen < 5.0 ug/mL (10.0-30.0) L 08/27/18 17:17 Plasma/Serum Alcohol < 0.01 % (0-0.07) 08/27/18 17:12 Active Medications - Current Medications Current Medications: Generic Name Dose Route Start Last Admin Trade Name Freq PRN Reason Stop Dose Admin Acetaminophen 650 mg 08/28/18 13:00 Tylenol PO Q4H PRN Pain, Mild (1-3) Albuterol 2.5 mg 08/28/18 12:25 Proventil IH Q3HRT PRN Shortness Of Breath Aspirin 325 mg 08/28/18 10:00 08/30/18 09:35 Aspirin PO 325 mg QDAY QUE Administration Benztropine Mesylate 2 mg 08/28/18 10:00 08/30/18 09:35 Cogentin PO 2 mg DAILY QUE Administration Chlorpromazine HCl 50 mg 08/28/18 10:00 08/30/18 09:35 Thorazine PO 50 mg BID QUE Administration Citalopram Hydrobromide 20 mg 08/28/18 10:00 08/30/18 09:36 Celexa PO 20 mg QDAY QUE Administration Famotidine 20 mg 08/28/18 10:00 08/30/18 09:35 Pepcid PO 20 mg BID QUE Administration Furosemide 40 mg 08/28/18 10:00 08/30/18 09:35 Lasix PO 40 mg QDAY QUE Administration Gabapentin 300 mg 08/28/18 10:00 08/30/18 09:35 Neurontin PO 300 mg BID QUE Administration Heparin Sodium (Porcine) 5,000 unit 08/28/18 10:00 08/30/18 09:36 Heparin SUB-Q 5,000 unit Q12HR QUE Administration Sodium Chloride 500 mls @ 50 mls/hr 08/27/18 17:00 Nacl 0.9% 500 Ml IV DIRECT QUE Ceftriaxone Sodium 1 gm in 50 mls @ 100 mls/hr 08/27/18 22:00 08/29/18 22:05 Rocephin/Ns 1 Gm/50 Ml IV 100 mls/hr Q24HR@2200 QUE Administration Magnesium Hydroxide 30 ml 08/28/18 02:28 Milk Of Magnesia PO Q4H PRN Constipation Miscellaneous Medication 4.5 mg 08/28/18 10:00 Cariprazine Hcl [Vraylar] PO DAILY QUE Miscellaneous Medication 4 mg 08/28/18 10:00 Fesoterodine Fumarate Er PO DAILY [facility] Miscellaneous Medication 234 mg 08/28/18 06:45 Paliperidone Palmitate(Nf) IM Q3W [facility] Ondansetron HCl 4 mg 08/28/18 02:28 Zofran IV Q8H PRN Nausea And Vomiting Potassium Chloride 20 meq 08/28/18 10:00 08/30/18 09:35 K-Dur PO 20 meq QDAY QUE Administration Pravastatin Sodium 40 mg 08/28/18 22:00 08/29/18 22:06 Pravachol PO 40 mg QHS QUE Administration Promethazine HCl 25 mg 08/28/18 02:56 Phenergan PO Q6H PRN Nausea And Vomiting Promethazine HCl 25 mg 08/28/18 02:56 Phenergan [place] Q6H PRN Nausea And Vomiting Sertraline HCl 50 mg 08/28/18 10:00 08/30/18 09:36 Zoloft PO 50 mg QDAY QUE Administration Sodium Chloride 10 ml 08/28/18 10:00 08/30/18 09:36 Sodium Chloride Flush Syringe 10 Ml IV 10 ml BID QUE Administration Sodium Chloride 10 ml 08/28/18 12:30 Sodium Chloride Flush Syringe 10 Ml IV PRN PRN LINE FLUSH Nutrition/Malnutrition Assess - Dietary Evaluation Nutrition/Malnutrition Findings: Nutrition Notes Start: 08/28/18 15:25 Freq: Status: Active Protocol: Document 08/28/18 15:25 KEVIN (Rec: 08/28/18 15:27 [facility] SRW- [email or web address]) Nutrition Notes Need for Assessment generated from: MD Order,Education Initial or Follow up Brief Note Other Pertinent Diagnosis s/p fall, syncopal episodes, dementia Current Diet Cardiac Subjective/Other Information RD consulted for diet education. Pt not appropriate for diet education at this time. Nutrition Intervention Follow-Up By: 08/31/18
[2018-08-30] MEDS: PRAVACHOL PO SCH (21:45)
[2018-08-30] MEDS: ROCEPHIN/NS 1 GM/50 ML 1 GM/50 ML BAG IV SCH (21:45)
[2018-08-31] MEDS: NEURONTIN PO SCH ×2 (10:04→22:20)
[2018-08-31] MEDS: LASIX PO SCH (10:04)
[2018-08-31] MEDS: ZOLOFT PO SCH (10:04)
[2018-08-31] MEDS: celeXA PO SCH (10:04)
[2018-08-31] MEDS: ASPIRIN PO SCH (10:04)
[2018-08-31] MEDS: COGENTIN PO SCH (10:04)
[2018-08-31] MEDS: PEPCID PO SCH ×2 (10:04→22:19)
[2018-08-31] MEDS: K-DUR PO SCH (10:04)
[2018-08-31] MEDS: HEPARIN SUB-Q SCH ×2 (10:04→22:20)
[2018-08-31] MEDS: SODIUM CHLORIDE FLUSH SYRINGE 10 ML IV SCH ×2 (10:05→22:20)
--- NOTE | 2018-08-31 10:49 | Progress Note ---
Assessment and Plan Assessment and plan: Syncope. Echocardiogram that reveals left ventricular chamber size and contractility that is normal with EF 55-60% and left ventricular diastolic filling pattern consistent with elevated left ventricular end-diastolic pressure. Carotid Doppler does reveal smooth plaque bilaterally with bilateral distal internal carotid artery suggesting ICA stenosis of 50-79%. ICA stenosis. Follow-up with vascular surgery as an outpatient. Hypertension. Continue his medications. COPD. Compensated. Continue breathing treatments as needed. CHF. Compensated. Peripheral neuropathy. Gait instability. Continue PT/OT. Physical therapy recommends subacute rehabilitation. Disposition. Await subacute rehabilitation placement History Interval history: No new issues overnight. Hospitalist Physical - Constitutional Vitals: Temp Pulse Resp BP Pulse Ox 98.3 F 103 H 18 108/64 95 08/31/18 08:20 08/31/18 08:20 08/31/18 08:20 08/31/18 08:20 08/31/18 08:20 General appearance: Present: no acute distress - EENT Eyes: Present: PERRL, EOM intact ENT: hearing intact, clear oral mucosa, dentition normal - Neck Neck: Present: supple, normal ROM - Respiratory Respiratory effort: normal Respiratory: bilateral: CTA - Cardiovascular Rhythm: regular Heart Sounds: Present: S1 & S2. Absent: gallop, rub - Extremities Extremities: no ischemia, No edema, Full ROM - Abdominal General gastrointestinal: soft, non-tender, non-distended, normal bowel sounds - Integumentary Integumentary: Present: clear, warm, dry - Neurologic Neurologic: CNII-XII intact, moves all extremities Results - Labs CBC & Chem 7: 08/27/18 18:14 08/27/18 17:12 Labs: Laboratory Last Values WBC 3.0 K/mm3 (4.5-11.0) L 08/27/18 18:14 RBC 3.53 M/mm3 (3.65-5.03) L 08/27/18 18:14 Hgb 10.9 gm/dl (10.1-14.3) 08/27/18 18:14 Hct 32.8 % (30.3-42.9) 08/27/18 18:14 MCV 93 fl (79-97) 08/27/18 18:14 MCH 31 pg (28-32) 08/27/18 18:14 MCHC 33 % (30-34) 08/27/18 18:14 RDW 15.3 % (13.2-15.2) H 08/27/18 18:14 Plt Count 123 K/mm3 (140-440) L 08/27/18 18:14 Lymph % (Auto) [employer] 08/27/18 18:14 [place] % (Auto) [employer] 08/27/18 18:14 Eos % (Auto) [employer] 08/27/18 18:14 Baso % (Auto) [employer] 08/27/18 18:14 Lymph # [employer] 08/27/18 18:14 [place] # [employer] 08/27/18 18:14 Eos # [employer] 08/27/18 18:14 Baso # [employer] 08/27/18 18:14 Seg Neutrophils % [employer] 08/27/18 18:14 Seg Neutrophils # [employer] 08/27/18 18:14 PT 13.0 Sec. (12.2-14.9) 08/27/18 17:12 INR 0.93 (0.87-1.13) 08/27/18 17:12 APTT 20.0 Sec. (24.2-36.6) L 08/27/18 17:12 Sodium 134 mmol/L (137-145) L 08/27/18 17:12 Potassium 4.7 mmol/L (3.6-5.0) 08/27/18 17:12 Chloride 103.7 mmol/L (98-107) 08/27/18 17:12 Carbon Dioxide 20 mmol/L (22-30) L 08/27/18 17:12 15 mmol/L 08/27/18 17:12 BUN 16 mg/dL (7-17) 08/27/18 17:12 0.9 mg/dL (0.7-1.2) 08/27/18 17:12 Estimated GFR > 60 ml/min 08/27/18 17:12 18 % 08/27/18 17:12 Glucose 103 mg/dL (65-100) H 08/27/18 17:12 Calcium 8.6 mg/dL (8.4-10.2) 08/27/18 17:12 Magnesium 1.90 mg/dL (1.7-2.3) 08/27/18 17:17 46 units/L (30-135) 08/28/18 12:31 CK-MB (CK-2) 2.0 ng/mL (0.0-4.0) 08/28/18 12:31 CK-MB (CK-2) Rel Index 4.3 (0-4) H 08/28/18 12:31 < 0.010 ng/mL (0.00-0.029) 08/28/18 12:31 Triglycerides 77 mg/dL (2-149) 08/29/18 04:55 Cholesterol 173 mg/dL (50-199) 08/29/18 04:55 109 mg/dL (50-130) 08/29/18 04:55 46 mg/dL (40-59) 08/29/18 04:55 3.76 % 08/29/18 04:55 TSH 1.190 mlU/mL (0.270-4.200) 08/27/18 17:17 Straw (Yellow) 08/27/18 19:02 Clear (Clear) 08/27/18 19:02 5.0 (5.0-7.0) 08/27/18 19:02 Ur Specific [place] 1.019 (1.003-1.030) 08/27/18 19:02 <15 mg/dl mg/dL (Negative) 08/27/18 19:02 Neg mg/dL (Negative) 08/27/18 19:02 Neg mg/dL (Negative) 08/27/18 19:02 Neg (Negative) 08/27/18 19:02 Pos (Negative) 08/27/18 19:02 Neg (Negative) 08/27/18 19:02 < 2.0 mg/dL (<2.0) 08/27/18 19:02 Ur Leukocyte Esterase Neg (Negative) 08/27/18 19:02 1.0 /HPF (0.0-6.0) 08/27/18 19:02 < 1.0 /HPF (0.0-6.0) 08/27/18 19:02 U Epithel Cells (Auto) 1.0 /HPF (0-13.0) 08/27/18 19:02 1+ /HPF (Negative) 08/27/18 19:02 Few /HPF 08/27/18 19:02 Salicylates < 0.3 mg/dL (2.8-20.0) L 08/27/18 17:17 Acetaminophen < 5.0 ug/mL (10.0-30.0) L 08/27/18 17:17 Plasma/Serum Alcohol < 0.01 % (0-0.07) 08/27/18 17:12 Active Medications - Current Medications Current Medications: Generic Name Dose Route Start Last Admin Trade Name Freq PRN Reason Stop Dose Admin Acetaminophen 650 mg 08/28/18 13:00 Tylenol PO Q4H PRN Pain, Mild (1-3) Albuterol 2.5 mg 08/28/18 12:25 Proventil IH Q3HRT PRN Shortness Of Breath Aspirin 325 mg 08/28/18 10:00 08/31/18 10:04 Aspirin PO 325 mg QDAY QUE Administration Benztropine Mesylate 2 mg 08/28/18 10:00 08/31/18 10:04 Cogentin PO 2 mg DAILY QUE Administration Chlorpromazine HCl 50 mg 08/28/18 10:00 08/30/18 21:45 Thorazine PO 50 mg BID QUE Administration Citalopram Hydrobromide 20 mg 08/28/18 10:00 08/31/18 10:04 Celexa PO 20 mg QDAY QUE Administration Famotidine 20 mg 08/28/18 10:00 08/31/18 10:04 Pepcid PO 20 mg BID QUE Administration Furosemide 40 mg 08/28/18 10:00 08/31/18 10:04 Lasix PO 40 mg QDAY QUE Administration Gabapentin 300 mg 08/28/18 10:00 08/31/18 10:04 Neurontin PO 300 mg BID QUE Administration Heparin Sodium (Porcine) 5,000 unit 08/28/18 10:00 08/31/18 10:04 Heparin SUB-Q 5,000 unit Q12HR QUE Administration Sodium Chloride 500 mls @ 50 mls/hr 08/27/18 17:00 Nacl 0.9% 500 Ml IV DIRECT QUE Ceftriaxone Sodium 1 gm in 50 mls @ 100 mls/hr 08/27/18 22:00 08/30/18 21:45 Rocephin/Ns 1 Gm/50 Ml IV 100 mls/hr Q24HR@2200 QUE Administration Magnesium Hydroxide 30 ml 08/28/18 02:28 Milk Of Magnesia PO Q4H PRN Constipation Miscellaneous Medication 4.5 mg 08/28/18 10:00 Cariprazine Hcl [Vraylar] PO DAILY [facility] Miscellaneous Medication 4 mg 08/28/18 10:00 Fesoterodine Fumarate Er PO DAILY [facility] Miscellaneous Medication 234 mg 08/28/18 06:45 Paliperidone Palmitate(Nf) IM Q3W QUE Ondansetron HCl 4 mg 08/28/18 02:28 Zofran IV Q8H PRN Nausea And Vomiting Potassium Chloride 20 meq 08/28/18 10:00 08/31/18 10:04 K-Dur PO 20 meq QDAY QUE Administration Pravastatin Sodium 40 mg 08/28/18 22:00 08/30/18 21:45 Pravachol PO 40 mg QHS QUE Administration Promethazine HCl 25 mg 08/28/18 02:56 Phenergan PO Q6H PRN Nausea And Vomiting Promethazine HCl 25 mg 08/28/18 02:56 Phenergan [place] Q6H PRN Nausea And Vomiting Sertraline HCl 50 mg 08/28/18 10:00 08/31/18 10:04 Zoloft PO 50 mg QDAY QUE Administration Sodium Chloride 10 ml 08/28/18 10:00 08/31/18 10:05 Sodium Chloride Flush Syringe 10 Ml IV 10 ml BID QUE Administration Sodium Chloride 10 ml 08/28/18 12:30 Sodium Chloride Flush Syringe 10 Ml IV PRN PRN LINE FLUSH Nutrition/Malnutrition Assess - Dietary Evaluation Nutrition/Malnutrition Findings: Nutrition Notes Start: 08/28/18 15:25 Freq: Status: Active Protocol: Document 08/28/18 15:25 KEVIN (Rec: 08/28/18 15:27 KEVIN [email or web address]) Nutrition Notes Need for Assessment generated from: MD Order,Education Initial or Follow up Brief Note Other Pertinent Diagnosis s/p fall, syncopal episodes, dementia Current Diet Cardiac Subjective/Other Information RD consulted for diet education. Pt not appropriate for diet education at this time. Nutrition Intervention Follow-Up By: 08/31/18
[2018-08-31] MEDS: THORAZINE PO SCH ×2 (18:15→22:20)
[2018-08-31] MEDS: ROCEPHIN/NS 1 GM/50 ML 1 GM/50 ML BAG IV SCH (22:18)
[2018-08-31] MEDS: PRAVACHOL PO SCH (22:19)
[2018-09-01] MEDS: ASPIRIN PO SCH (10:53)
[2018-09-01] MEDS: PEPCID PO SCH ×2 (10:53→23:35)
[2018-09-01] MEDS: ZOLOFT PO SCH (10:53)
[2018-09-01] MEDS: celeXA PO SCH (10:53)
[2018-09-01] MEDS: LASIX PO SCH (10:53)
[2018-09-01] MEDS: K-DUR PO SCH (10:53)
[2018-09-01] MEDS: HEPARIN SUB-Q SCH ×2 (10:54→23:35)
[2018-09-01] MEDS: NEURONTIN PO SCH ×2 (10:54→23:34)
[2018-09-01] MEDS: COGENTIN PO SCH (10:54)
[2018-09-01] MEDS: SODIUM CHLORIDE FLUSH SYRINGE 10 ML IV SCH ×2 (10:54→23:35)
[2018-09-01] MEDS: THORAZINE PO SCH ×2 (11:44→23:34)
--- NOTE | 2018-09-01 12:47 | Progress Note ---
Assessment and Plan Assessment and plan: Syncope. Echocardiogram that reveals left ventricular chamber size and contractility that is normal with EF 55-60% and left ventricular diastolic filling pattern consistent with elevated left ventricular end-diastolic pressure. Carotid Doppler does reveal smooth plaque bilaterally with bilateral distal internal carotid artery suggesting ICA stenosis of 50-79%. ICA stenosis. Follow-up with vascular surgery as an outpatient. Hypertension. Continue his medications. COPD. Compensated. Continue breathing treatments as needed. CHF. Compensated. Peripheral neuropathy. Gait instability. Continue PT/OT. Physical therapy recommends subacute rehabilitation. Disposition. Await subacute rehabilitation placement History Interval history: No new issues overnight. Hospitalist Physical - Constitutional Vitals: Temp Pulse Resp BP Pulse Ox 97.7 F 77 18 104/46 96 09/01/18 05:37 09/01/18 05:36 09/01/18 05:36 09/01/18 05:36 09/01/18 05:36 General appearance: Present: no acute distress - EENT Eyes: Present: PERRL, EOM intact ENT: hearing intact, clear oral mucosa, dentition normal - Neck Neck: Present: supple, normal ROM - Respiratory Respiratory effort: normal Respiratory: bilateral: CTA - Cardiovascular Rhythm: regular Heart Sounds: Present: S1 & S2. Absent: gallop, rub - Extremities Extremities: no ischemia, No edema, Full ROM - Abdominal General gastrointestinal: soft, non-tender, non-distended, normal bowel sounds - Integumentary Integumentary: Present: clear, warm, dry - Neurologic Neurologic: CNII-XII intact, moves all extremities Results - Labs CBC & Chem 7: 08/27/18 18:14 08/27/18 17:12 Labs: Laboratory Last Values WBC 3.0 K/mm3 (4.5-11.0) L 08/27/18 18:14 RBC 3.53 M/mm3 (3.65-5.03) L 08/27/18 18:14 Hgb 10.9 gm/dl (10.1-14.3) 08/27/18 18:14 Hct 32.8 % (30.3-42.9) 08/27/18 18:14 MCV 93 fl (79-97) 08/27/18 18:14 MCH 31 pg (28-32) 08/27/18 18:14 MCHC 33 % (30-34) 08/27/18 18:14 RDW 15.3 % (13.2-15.2) H 08/27/18 18:14 Plt Count 123 K/mm3 (140-440) L 08/27/18 18:14 Lymph % (Auto) [employer] 08/27/18 18:14 [place] % (Auto) [employer] 08/27/18 18:14 Eos % (Auto) [employer] 08/27/18 18:14 Baso % (Auto) [employer] 08/27/18 18:14 Lymph # [employer] 08/27/18 18:14 [place] # [employer] 08/27/18 18:14 Eos # [employer] 08/27/18 18:14 Baso # [employer] 08/27/18 18:14 Seg Neutrophils % [employer] 08/27/18 18:14 Seg Neutrophils # [employer] 08/27/18 18:14 PT 13.0 Sec. (12.2-14.9) 08/27/18 17:12 INR 0.93 (0.87-1.13) 08/27/18 17:12 APTT 20.0 Sec. (24.2-36.6) L 08/27/18 17:12 Sodium 134 mmol/L (137-145) L 08/27/18 17:12 Potassium 4.7 mmol/L (3.6-5.0) 08/27/18 17:12 Chloride 103.7 mmol/L (98-107) 08/27/18 17:12 Carbon Dioxide 20 mmol/L (22-30) L 08/27/18 17:12 15 mmol/L 08/27/18 17:12 BUN 16 mg/dL (7-17) 08/27/18 17:12 0.9 mg/dL (0.7-1.2) 08/27/18 17:12 Estimated GFR > 60 ml/min 08/27/18 17:12 18 % 08/27/18 17:12 Glucose 103 mg/dL (65-100) H 08/27/18 17:12 Calcium 8.6 mg/dL (8.4-10.2) 08/27/18 17:12 Magnesium 1.90 mg/dL (1.7-2.3) 08/27/18 17:17 46 units/L (30-135) 08/28/18 12:31 CK-MB (CK-2) 2.0 ng/mL (0.0-4.0) 08/28/18 12:31 CK-MB (CK-2) Rel Index 4.3 (0-4) H 08/28/18 12:31 < 0.010 ng/mL (0.00-0.029) 08/28/18 12:31 Triglycerides 77 mg/dL (2-149) 08/29/18 04:55 Cholesterol 173 mg/dL (50-199) 08/29/18 04:55 109 mg/dL (50-130) 08/29/18 04:55 46 mg/dL (40-59) 08/29/18 04:55 3.76 % 08/29/18 04:55 TSH 1.190 mlU/mL (0.270-4.200) 08/27/18 17:17 Straw (Yellow) 08/27/18 19:02 Clear (Clear) 08/27/18 19:02 5.0 (5.0-7.0) 08/27/18 19:02 Ur Specific [place] 1.019 (1.003-1.030) 08/27/18 19:02 <15 mg/dl mg/dL (Negative) 08/27/18 19:02 Neg mg/dL (Negative) 08/27/18 19:02 Neg mg/dL (Negative) 08/27/18 19:02 Neg (Negative) 08/27/18 19:02 Pos (Negative) 08/27/18 19:02 Neg (Negative) 08/27/18 19:02 < 2.0 mg/dL (<2.0) 08/27/18 19:02 Ur Leukocyte Esterase Neg (Negative) 08/27/18 19:02 1.0 /HPF (0.0-6.0) 08/27/18 19:02 < 1.0 /HPF (0.0-6.0) 08/27/18 19:02 U Epithel Cells (Auto) 1.0 /HPF (0-13.0) 08/27/18 19:02 1+ /HPF (Negative) 08/27/18 19:02 Few /HPF 08/27/18 19:02 Salicylates < 0.3 mg/dL (2.8-20.0) L 08/27/18 17:17 Acetaminophen < 5.0 ug/mL (10.0-30.0) L 08/27/18 17:17 Plasma/Serum Alcohol < 0.01 % (0-0.07) 08/27/18 17:12 Active Medications - Current Medications Current Medications: Generic Name Dose Route Start Last Admin Trade Name Freq PRN Reason Stop Dose Admin Acetaminophen 650 mg 08/28/18 13:00 Tylenol PO Q4H PRN Pain, Mild (1-3) Albuterol 2.5 mg 08/28/18 12:25 Proventil IH Q3HRT PRN Shortness Of Breath Aspirin 325 mg 08/28/18 10:00 09/01/18 10:53 Aspirin PO 325 mg QDAY QUE Administration Benztropine Mesylate 2 mg 08/28/18 10:00 09/01/18 10:54 Cogentin PO 2 mg DAILY QUE Administration Chlorpromazine HCl 50 mg 08/28/18 10:00 09/01/18 11:44 Thorazine PO 50 mg BID QUE Administration Citalopram Hydrobromide 20 mg 08/28/18 10:00 09/01/18 10:53 Celexa PO 20 mg QDAY QUE Administration Famotidine 20 mg 08/28/18 10:00 09/01/18 10:53 Pepcid PO 20 mg BID QUE Administration Furosemide 40 mg 08/28/18 10:00 09/01/18 10:53 Lasix PO 40 mg QDAY QUE Administration Gabapentin 300 mg 08/28/18 10:00 09/01/18 10:54 Neurontin PO 300 mg BID QUE Administration Heparin Sodium (Porcine) 5,000 unit 08/28/18 10:00 09/01/18 10:54 Heparin SUB-Q 5,000 unit Q12HR QUE Administration Sodium Chloride 500 mls @ 50 mls/hr 08/27/18 17:00 Nacl 0.9% 500 Ml IV DIRECT QUE Ceftriaxone Sodium 1 gm in 50 mls @ 100 mls/hr 08/27/18 22:00 08/31/18 22:18 Rocephin/Ns 1 Gm/50 Ml IV 100 mls/hr Q24HR@2200 QUE Administration Magnesium Hydroxide 30 ml 08/28/18 02:28 Milk Of Magnesia PO Q4H PRN Constipation Miscellaneous Medication 4.5 mg 08/28/18 10:00 Cariprazine Hcl [Vraylar] PO DAILY [facility] Miscellaneous Medication 4 mg 08/28/18 10:00 Fesoterodine Fumarate Er PO DAILY QUE Miscellaneous Medication 234 mg 08/28/18 06:45 Paliperidone Palmitate(Nf) IM Q3W QUE Ondansetron HCl 4 mg 08/28/18 02:28 Zofran IV Q8H PRN Nausea And Vomiting Potassium Chloride 20 meq 08/28/18 10:00 09/01/18 10:53 K-Dur PO 20 meq QDAY QUE Administration Pravastatin Sodium 40 mg 08/28/18 22:00 08/31/18 22:19 Pravachol PO 40 mg QHS QUE Administration Promethazine HCl 25 mg 08/28/18 02:56 Phenergan PO Q6H PRN Nausea And Vomiting Promethazine HCl 25 mg 08/28/18 02:56 Phenergan [place] Q6H PRN Nausea And Vomiting Sertraline HCl 50 mg 08/28/18 10:00 09/01/18 10:53 Zoloft PO 50 mg QDAY QUE Administration Sodium Chloride 10 ml 08/28/18 10:00 09/01/18 10:54 Sodium Chloride Flush Syringe 10 Ml IV 10 ml BID QUE Administration Sodium Chloride 10 ml 08/28/18 12:30 08/31/18 22:21 Sodium Chloride Flush Syringe 10 Ml IV 10 ml PRN PRN Administration LINE FLUSH Nutrition/Malnutrition Assess - Dietary Evaluation Nutrition/Malnutrition Findings: Nutrition Notes Start: 08/28/18 15:25 Freq: Status: Active Protocol: Document 08/31/18 12:47 KEVIN (Rec: 08/31/18 12:50 KEVIN [email or web address]) Nutrition Notes Initial or Follow up Brief Note Subjective/Other Information Pt sleeping soundly at time of visit (12:33). No PO intakes documented. Nutrition Intervention Follow-Up By: 09/03/18 Additional Comments F/U: intakes, need for ONS
[2018-09-01] MEDS: ROCEPHIN/NS 1 GM/50 ML 1 GM/50 ML BAG IV SCH (23:32)
[2018-09-01] MEDS: PRAVACHOL PO SCH (23:34)
[2018-09-02] MEDS: HEPARIN SUB-Q SCH ×2 (10:59→22:37)
[2018-09-02] MEDS: ASPIRIN PO SCH (10:59)
[2018-09-02] MEDS: COGENTIN PO SCH (11:00)
[2018-09-02] MEDS: PEPCID PO SCH ×2 (11:00→22:37)
[2018-09-02] MEDS: celeXA PO SCH (11:00)
[2018-09-02] MEDS: ZOLOFT PO SCH (11:00)
[2018-09-02] MEDS: K-DUR PO SCH (11:00)
[2018-09-02] MEDS: THORAZINE PO SCH ×2 (11:00→22:37)
[2018-09-02] MEDS: NEURONTIN PO SCH ×2 (11:00→22:37)
[2018-09-02] MEDS: LASIX PO SCH (11:00)
[2018-09-02] MEDS: SODIUM CHLORIDE FLUSH SYRINGE 10 ML IV SCH ×2 (11:01→22:37)
--- NOTE | 2018-09-02 11:05 | Progress Note ---
Assessment and Plan Assessment and plan: Syncope. Echocardiogram that reveals left ventricular chamber size and contractility that is normal with EF 55-60% and left ventricular diastolic filling pattern consistent with elevated left ventricular end-diastolic pressure. Carotid Doppler does reveal smooth plaque bilaterally with bilateral distal internal carotid artery suggesting ICA stenosis of 50-79%. ICA stenosis. Follow-up with vascular surgery as an outpatient. Hypertension. Continue antihypertensive medications. COPD. Compensated. Continue breathing treatments as needed. CHF. Compensated. Peripheral neuropathy. Gait instability. Continue PT/OT. Physical therapy recommends subacute rehabilitation. Disposition. Await subacute rehabilitation placement History Interval history: No new issues overnight. Hospitalist Physical - Constitutional Vitals: Temp Pulse Resp BP Pulse Ox 98.0 F 70 16 101/52 97 09/02/18 08:00 09/02/18 08:00 09/02/18 08:00 09/02/18 08:00 09/02/18 08:00 General appearance: Present: no acute distress - EENT Eyes: Present: PERRL, EOM intact ENT: hearing intact, clear oral mucosa, dentition normal - Neck Neck: Present: supple, normal ROM - Respiratory Respiratory effort: normal Respiratory: bilateral: CTA - Cardiovascular Rhythm: regular Heart Sounds: Present: S1 & S2. Absent: gallop, rub - Extremities Extremities: no ischemia, No edema, Full ROM - Abdominal General gastrointestinal: soft, non-tender, non-distended, normal bowel sounds - Integumentary Integumentary: Present: clear, warm, dry - Neurologic Neurologic: CNII-XII intact, moves all extremities Results - Labs CBC & Chem 7: 08/27/18 18:14 08/27/18 17:12 Labs: Laboratory Last Values WBC 3.0 K/mm3 (4.5-11.0) L 08/27/18 18:14 RBC 3.53 M/mm3 (3.65-5.03) L 08/27/18 18:14 Hgb 10.9 gm/dl (10.1-14.3) 08/27/18 18:14 Hct 32.8 % (30.3-42.9) 08/27/18 18:14 MCV 93 fl (79-97) 08/27/18 18:14 MCH 31 pg (28-32) 08/27/18 18:14 MCHC 33 % (30-34) 08/27/18 18:14 RDW 15.3 % (13.2-15.2) H 08/27/18 18:14 Plt Count 123 K/mm3 (140-440) L 08/27/18 18:14 Lymph % (Auto) [employer] 08/27/18 18:14 [place] % (Auto) Environmental Issues In[employer] 08/27/18 18:14 Eos % (Auto) [employer] In[employer] 08/27/18 18:14 Baso % (Auto) [employer] In[employer] 08/27/18 18:14 Lymph # [employer] In[employer] 08/27/18 18:14 [place] # Environmental Issues Instructor 08/27/18 18:14 Eos # Environmental Issues Instructor 08/27/18 18:14 Baso # Environmental Issues Instructor 08/27/18 18:14 Seg Neutrophils % Environmental Issues Instructor 08/27/18 18:14 Seg Neutrophils # Environmental Issues Instructor 08/27/18 18:14 PT 13.0 Sec. (12.2-14.9) 08/27/18 17:12 INR 0.93 (0.87-1.13) 08/27/18 17:12 APTT 20.0 Sec. (24.2-36.6) L 08/27/18 17:12 Sodium 134 mmol/L (137-145) L 08/27/18 17:12 Potassium 4.7 mmol/L (3.6-5.0) 08/27/18 17:12 Chloride 103.7 mmol/L (98-107) 08/27/18 17:12 Carbon Dioxide 20 mmol/L (22-30) L 08/27/18 17:12 15 mmol/L 08/27/18 17:12 BUN 16 mg/dL (7-17) 08/27/18 17:12 0.9 mg/dL (0.7-1.2) 08/27/18 17:12 Estimated GFR > 60 ml/min 08/27/18 17:12 18 % 08/27/18 17:12 Glucose 103 mg/dL (65-100) H 08/27/18 17:12 Calcium 8.6 mg/dL (8.4-10.2) 08/27/18 17:12 Magnesium 1.90 mg/dL (1.7-2.3) 08/27/18 17:17 46 units/L (30-135) 08/28/18 12:31 CK-MB (CK-2) 2.0 ng/mL (0.0-4.0) 08/28/18 12:31 CK-MB (CK-2) Rel Index 4.3 (0-4) H 08/28/18 12:31 < 0.010 ng/mL (0.00-0.029) 08/28/18 12:31 Triglycerides 77 mg/dL (2-149) 08/29/18 04:55 Cholesterol 173 mg/dL (50-199) 08/29/18 04:55 109 mg/dL (50-130) 08/29/18 04:55 46 mg/dL (40-59) 08/29/18 04:55 3.76 % 08/29/18 04:55 TSH 1.190 mlU/mL (0.270-4.200) 08/27/18 17:17 Straw (Yellow) 08/27/18 19:02 Clear (Clear) 08/27/18 19:02 5.0 (5.0-7.0) 08/27/18 19:02 Ur Specific [place] 1.019 (1.003-1.030) 08/27/18 19:02 <15 mg/dl mg/dL (Negative) 08/27/18 19:02 Neg mg/dL (Negative) 08/27/18 19:02 Neg mg/dL (Negative) 08/27/18 19:02 Neg (Negative) 08/27/18 19:02 Pos (Negative) 08/27/18 19:02 Neg (Negative) 08/27/18 19:02 < 2.0 mg/dL (<2.0) 08/27/18 19:02 Ur Leukocyte Esterase Neg (Negative) 08/27/18 19:02 1.0 /HPF (0.0-6.0) 08/27/18 19:02 < 1.0 /HPF (0.0-6.0) 08/27/18 19:02 U Epithel Cells (Auto) 1.0 /HPF (0-13.0) 08/27/18 19:02 1+ /HPF (Negative) 08/27/18 19:02 Few /HPF 08/27/18 19:02 Salicylates < 0.3 mg/dL (2.8-20.0) L 08/27/18 17:17 Acetaminophen < 5.0 ug/mL (10.0-30.0) L 08/27/18 17:17 Plasma/Serum Alcohol < 0.01 % (0-0.07) 08/27/18 17:12 Active Medications - Current Medications Current Medications: Generic Name Dose Route Start Last Admin Trade Name Freq PRN Reason Stop Dose Admin Acetaminophen 650 mg 08/28/18 13:00 Tylenol PO Q4H PRN Pain, Mild (1-3) Albuterol 2.5 mg 08/28/18 12:25 Proventil IH Q3HRT PRN Shortness Of Breath Aspirin 325 mg 08/28/18 10:00 09/02/18 10:59 Aspirin PO 325 mg QDAY QUE Administration Benztropine Mesylate 2 mg 08/28/18 10:00 09/02/18 11:00 Cogentin PO 2 mg DAILY QUE Administration Chlorpromazine HCl 50 mg 08/28/18 10:00 09/02/18 11:00 Thorazine PO 50 mg BID QUE Administration Citalopram Hydrobromide 20 mg 08/28/18 10:00 09/02/18 11:00 Celexa PO 20 mg QDAY QUE Administration Famotidine 20 mg 08/28/18 10:00 09/02/18 11:00 Pepcid PO 20 mg BID QUE Administration Furosemide 40 mg 08/28/18 10:00 09/02/18 11:00 Lasix PO 40 mg QDAY QUE Administration Gabapentin 300 mg 08/28/18 10:00 09/02/18 11:00 Neurontin PO 300 mg BID QUE Administration Heparin Sodium (Porcine) 5,000 unit 08/28/18 10:00 09/02/18 10:59 Heparin SUB-Q 5,000 unit Q12HR QUE Administration Sodium Chloride 500 mls @ 50 mls/hr 08/27/18 17:00 Nacl 0.9% 500 Ml IV DIRECT QUE Ceftriaxone Sodium 1 gm in 50 mls @ 100 mls/hr 08/27/18 22:00 09/01/18 23:32 Rocephin/Ns 1 Gm/50 Ml IV 100 mls/hr Q24HR@2200 QUE Administration Magnesium Hydroxide 30 ml 08/28/18 02:28 Milk Of Magnesia PO Q4H PRN Constipation Miscellaneous Medication 4.5 mg 08/28/18 10:00 Cariprazine Hcl [Vraylar] PO DAILY [facility] Miscellaneous Medication 4 mg 08/28/18 10:00 Fesoterodine Fumarate Er PO DAILY QUE Miscellaneous Medication 234 mg 08/28/18 06:45 Paliperidone Palmitate(Nf) IM Q3W QUE Ondansetron HCl 4 mg 08/28/18 02:28 Zofran IV Q8H PRN Nausea And Vomiting Potassium Chloride 20 meq 08/28/18 10:00 09/02/18 11:00 K-Dur PO 20 meq QDAY QUE Administration Pravastatin Sodium 40 mg 08/28/18 22:00 09/01/18 23:34 Pravachol PO 40 mg QHS QUE Administration Promethazine HCl 25 mg 08/28/18 02:56 Phenergan PO Q6H PRN Nausea And Vomiting Promethazine HCl 25 mg 08/28/18 02:56 Phenergan [place] Q6H PRN Nausea And Vomiting Sertraline HCl 50 mg 08/28/18 10:00 09/02/18 11:00 Zoloft PO 50 mg QDAY QUE Administration Sodium Chloride 10 ml 08/28/18 10:00 09/02/18 11:01 Sodium Chloride Flush Syringe 10 Ml IV 10 ml BID QUE Administration Sodium Chloride 10 ml 08/28/18 12:30 08/31/18 22:21 Sodium Chloride Flush Syringe 10 Ml IV 10 ml PRN PRN Administration LINE FLUSH Nutrition/Malnutrition Assess - Dietary Evaluation Nutrition/Malnutrition Findings: Nutrition Notes Start: 08/28/18 15:25 Freq: Status: Active Protocol: Document 08/31/18 12:47 KEVIN (Rec: 08/31/18 12:50 [id number]) Nutrition Notes Initial or Follow up Brief Note Subjective/Other Information Pt sleeping soundly at time of visit (12:33). No PO intakes documented. Nutrition Intervention Follow-Up By: 09/03/18 Additional Comments F/U: intakes, need for ONS
[2018-09-02] MEDS: PRAVACHOL PO SCH (22:37)
[2018-09-03] MEDS: LASIX PO SCH (09:23)
[2018-09-03] MEDS: COGENTIN PO SCH (09:44)
[2018-09-03] MEDS: ASPIRIN PO SCH (09:45)
[2018-09-03] MEDS: PEPCID PO SCH ×2 (09:45→22:48)
[2018-09-03] MEDS: K-DUR PO SCH (09:45)
[2018-09-03] MEDS: THORAZINE PO SCH ×2 (09:45→22:47)
[2018-09-03] MEDS: ZOLOFT PO SCH (09:46)
[2018-09-03] MEDS: NEURONTIN PO SCH ×2 (09:46→22:47)
[2018-09-03] MEDS: celeXA PO SCH (09:46)
[2018-09-03] MEDS: SODIUM CHLORIDE FLUSH SYRINGE 10 ML IV SCH (09:46)
[2018-09-03] MEDS: HEPARIN SUB-Q SCH ×2 (11:42→22:48)
--- NOTE | 2018-09-03 17:43 | Progress Note ---
Assessment and Plan Assessment and plan: --Syncope: No new episodes of syncope , fall precautions Echocardiogram that reveals left ventricular chamber size and contractility that is normal with EF 55-60% and left ventricular diastolic filling pattern consistent with elevated left ventricular end-diastolic pressure. Carotid Doppler does reveal smooth plaque bilaterally with bilateral distal internal carotid artery suggesting ICA stenosis of 50-79%. --ICA stenosis. Follow-up with vascular surgery as an outpatient. Continue antiplatelets and statins --Hypertension : Continue antihypertensive medications. No new episodes of syncope --COPD:Well Compensated. Continue nebs as needed --CHF. Compensated. --Peripheral neuropathy. --Gait instability. Continue PT/OT. Physical therapy recommends subacute rehabilitation. Disposition. Await subacute rehabilitation placement when medically stable History Interval history: Patient seen and examined this afternoon medical records reviewed Patient feels better no new complaints Vital signs noted, Alert and awake not in acute distress Awaiting SNF placement Hospitalist Physical - Constitutional Vitals: Temp Pulse Resp BP Pulse Ox 98.3 F 85 12 81/42 94 09/03/18 09:08 09/03/18 12:26 09/03/18 09:08 09/03/18 12:26 09/03/18 12:26 General appearance: Present: no acute distress, well-nourished, obese - EENT Eyes: Present: PERRL, EOM intact - Neck Neck: Present: supple, normal ROM - Respiratory Respiratory effort: normal Respiratory: bilateral: diminished, rales, negative: rhonchi, wheezing - Cardiovascular Rhythm: regular Heart Sounds: Present: S1 & S2 - Extremities Extremities: no ischemia, No edema - Abdominal General gastrointestinal: soft, non-tender, non-distended, normal bowel sounds - Integumentary Integumentary: Present: clear, warm - Psychiatric Psychiatric: appropriate mood/affect, cooperative - Neurologic Neurologic: CNII-XII intact, moves all extremities Results - Labs CBC & Chem 7: 08/27/18 18:14 08/27/18 17:12 Labs: Laboratory Last Values WBC 3.0 K/mm3 (4.5-11.0) L 08/27/18 18:14 RBC 3.53 M/mm3 (3.65-5.03) L 08/27/18 18:14 Hgb 10.9 gm/dl (10.1-14.3) 08/27/18 18:14 Hct 32.8 % (30.3-42.9) 08/27/18 18:14 MCV 93 fl (79-97) 08/27/18 18:14 MCH 31 pg (28-32) 08/27/18 18:14 MCHC 33 % (30-34) 08/27/18 18:14 RDW 15.3 % (13.2-15.2) H 08/27/18 18:14 Plt Count 123 K/mm3 (140-440) L 08/27/18 18:14 Lymph % (Auto) [employer] 08/27/18 18:14 [place] % (Auto) [employer]isher 08/27/18 18:14 Eos % (Auto) [employer] 08/27/18 18:14 Baso % (Auto) [employer] 08/27/18 18:14 Lymph # [employer]isher 08/27/18 18:14 [place] # Rod Finisher 08/27/18 18:14 Eos # [employer]isher 08/27/18 18:14 Baso # [employer] 08/27/18 18:14 Seg Neutrophils % [employer]isher 08/27/18 18:14 Seg Neutrophils # [employer] 08/27/18 18:14 PT 13.0 Sec. (12.2-14.9) 08/27/18 17:12 INR 0.93 (0.87-1.13) 08/27/18 17:12 APTT 20.0 Sec. (24.2-36.6) L 08/27/18 17:12 Sodium 134 mmol/L (137-145) L 08/27/18 17:12 Potassium 4.7 mmol/L (3.6-5.0) 08/27/18 17:12 Chloride 103.7 mmol/L (98-107) 08/27/18 17:12 Carbon Dioxide 20 mmol/L (22-30) L 08/27/18 17:12 15 mmol/L 08/27/18 17:12 BUN 16 mg/dL (7-17) 08/27/18 17:12 0.9 mg/dL (0.7-1.2) 08/27/18 17:12 Estimated GFR > 60 ml/min 08/27/18 17:12 18 % 08/27/18 17:12 Glucose 103 mg/dL (65-100) H 08/27/18 17:12 Calcium 8.6 mg/dL (8.4-10.2) 08/27/18 17:12 Magnesium 1.90 mg/dL (1.7-2.3) 08/27/18 17:17 46 units/L (30-135) 08/28/18 12:31 CK-MB (CK-2) 2.0 ng/mL (0.0-4.0) 08/28/18 12:31 CK-MB (CK-2) Rel Index 4.3 (0-4) H 08/28/18 12:31 < 0.010 ng/mL (0.00-0.029) 08/28/18 12:31 Triglycerides 77 mg/dL (2-149) 08/29/18 04:55 Cholesterol 173 mg/dL (50-199) 08/29/18 04:55 109 mg/dL (50-130) 08/29/18 04:55 46 mg/dL (40-59) 08/29/18 04:55 3.76 % 08/29/18 04:55 TSH 1.190 mlU/mL (0.270-4.200) 08/27/18 17:17 Straw (Yellow) 08/27/18 19:02 Clear (Clear) 08/27/18 19:02 5.0 (5.0-7.0) 08/27/18 19:02 Ur Specific [place] 1.019 (1.003-1.030) 08/27/18 19:02 <15 mg/dl mg/dL (Negative) 08/27/18 19:02 Neg mg/dL (Negative) 08/27/18 19:02 Neg mg/dL (Negative) 08/27/18 19:02 Neg (Negative) 08/27/18 19:02 Pos (Negative) 08/27/18 19:02 Neg (Negative) 08/27/18 19:02 < 2.0 mg/dL (<2.0) 08/27/18 19:02 Ur Leukocyte Esterase Neg (Negative) 08/27/18 19:02 1.0 /HPF (0.0-6.0) 08/27/18 19:02 < 1.0 /HPF (0.0-6.0) 08/27/18 19:02 U Epithel Cells (Auto) 1.0 /HPF (0-13.0) 08/27/18 19:02 1+ /HPF (Negative) 08/27/18 19:02 Few /HPF 08/27/18 19:02 Salicylates < 0.3 mg/dL (2.8-20.0) L 08/27/18 17:17 Acetaminophen < 5.0 ug/mL (10.0-30.0) L 08/27/18 17:17 Plasma/Serum Alcohol < 0.01 % (0-0.07) 08/27/18 17:12 Active Medications - Current Medications Current Medications: Generic Name Dose Route Start Last Admin Trade Name Freq PRN Reason Stop Dose Admin Acetaminophen 650 mg 08/28/18 13:00 Tylenol PO Q4H PRN Pain, Mild (1-3) Albuterol 2.5 mg 08/28/18 12:25 Proventil IH Q3HRT PRN Shortness Of Breath Aspirin 325 mg 08/28/18 10:00 09/03/18 09:45 Aspirin PO 325 mg QDAY QUE Administration Benztropine Mesylate 2 mg 08/28/18 10:00 09/03/18 09:44 Cogentin PO 2 mg DAILY QUE Administration Chlorpromazine HCl 50 mg 08/28/18 10:00 09/03/18 09:45 Thorazine PO 50 mg BID QUE Administration Citalopram Hydrobromide 20 mg 08/28/18 10:00 09/03/18 09:46 Celexa PO 20 mg QDAY QUE Administration Famotidine 20 mg 08/28/18 10:00 09/03/18 09:45 Pepcid PO 20 mg BID QUE Administration Furosemide 40 mg 08/28/18 10:00 09/03/18 09:23 Lasix PO Not Given QDAY QUE Gabapentin 300 mg 08/28/18 10:00 09/03/18 09:46 Neurontin PO 300 mg BID QUE Administration Heparin Sodium (Porcine) 5,000 unit 08/28/18 10:00 09/03/18 11:42 Heparin SUB-Q 5,000 unit Q12HR QUE Administration Sodium Chloride 500 mls @ 50 mls/hr 08/27/18 17:00 Nacl 0.9% 500 Ml IV DIRECT QUE Magnesium Hydroxide 30 ml 08/28/18 02:28 Milk Of Magnesia PO Q4H PRN Constipation Miscellaneous Medication 4.5 mg 08/28/18 10:00 Cariprazine Hcl [Vraylar] PO DAILY [facility] Miscellaneous Medication 4 mg 08/28/18 10:00 Fesoterodine Fumarate Er PO DAILY [facility] Miscellaneous Medication 234 mg 08/28/18 06:45 Paliperidone Palmitate(Nf) IM Q3W [facility] Ondansetron HCl 4 mg 08/28/18 02:28 Zofran IV Q8H PRN Nausea And Vomiting Potassium Chloride 20 meq 08/28/18 10:00 09/03/18 09:45 K-Dur PO 20 meq QDAY QUE Administration Pravastatin Sodium 40 mg 08/28/18 22:00 09/02/18 22:37 Pravachol PO 40 mg QHS QUE Administration Promethazine HCl 25 mg 08/28/18 02:56 Phenergan PO Q6H PRN Nausea And Vomiting Promethazine HCl 25 mg 08/28/18 02:56 Phenergan [place] Q6H PRN Nausea And Vomiting Sertraline HCl 50 mg 08/28/18 10:00 09/03/18 09:46 Zoloft PO 50 mg QDAY QUE Administration Sodium Chloride 10 ml 08/28/18 10:00 09/03/18 09:46 Sodium Chloride Flush Syringe 10 Ml IV 10 ml BID QUE Administration Sodium Chloride 10 ml 08/28/18 12:30 08/31/18 22:21 Sodium Chloride Flush Syringe 10 Ml IV 10 ml PRN PRN Administration LINE FLUSH Nutrition/Malnutrition Assess - Dietary Evaluation Nutrition/Malnutrition Findings: Nutrition Notes Start: 08/28/18 15:25 Freq: Status: Active Protocol: Document 09/03/18 15:46 RM (Rec: 09/03/18 15:48 RM [id number]) Nutrition Notes Initial or Follow up Brief Note Current Diagnosis Heart Failure Other Pertinent Diagnosis s/p fall, syncopal episodes, dementia Current Diet Cardiac Labs/Tests Reviewed Pertinent Medications Reviewed Height 5 ft 9 in Weight 101.2 kg [place] Body Weight (kg) 65.90 BMI 32.9 Subjective/Other Information Pt asleep at time of visit. Recorded PO intake 100% X 2 meals. Burn Absent Trauma Absent Nutrition Intervention Revisit per MD consult or patient Sign Off request:
[2018-09-03] MEDS: PRAVACHOL PO SCH (22:48)
[2018-09-04] MEDS: SODIUM CHLORIDE FLUSH SYRINGE 10 ML IV SCH ×3 (00:13→23:12)
--- NOTE | 2018-09-04 08:26 | Progress Note ---
Assessment and Plan Assessment and plan: --Syncope: No new episodes of syncope , fall precautions Echocardiogram that reveals left ventricular chamber size and contractility that is normal with EF 55-60% and left ventricular diastolic filling pattern consistent with elevated left ventricular end-diastolic pressure. Carotid Doppler does reveal smooth plaque bilaterally with bilateral distal internal carotid artery suggesting ICA stenosis of 50-79%. --ICA stenosis. Follow-up with vascular surgery as an outpatient. Continue antiplatelets and statins --Hypertension : Continue antihypertensive medications. No new episodes of syncope --COPD:Well Compensated. Continue nebs as needed --CHF. Compensated. --Peripheral neuropathy. --History of schizophrenia --Gait instability. Continue PT/OT. Physical therapy recommends subacute rehabilitation. Pending placement Disposition. Await rehabilitation placement level II clearance as patient has history of schizophrenia . History Interval history: Patient seen and examined medical records reviewed Patient feels better no new complaints Vital signs noted No new events reported by the nursing Hospitalist Physical - Constitutional Vitals: Temp Pulse Resp BP Pulse Ox 98.1 F 78 16 115/67 94 09/04/18 07:51 09/04/18 07:51 09/04/18 07:51 09/04/18 07:51 09/04/18 07:51 General appearance: Present: no acute distress, well-nourished, obese - EENT Eyes: Present: PERRL, EOM intact - Neck Neck: Present: supple, normal ROM - Respiratory Respiratory effort: normal Respiratory: bilateral: diminished, negative: rales, rhonchi, wheezing - Cardiovascular Rhythm: regular Heart Sounds: Present: S1 & S2 - Extremities Extremities: no ischemia, No edema - Abdominal General gastrointestinal: soft, non-tender, non-distended, normal bowel sounds Results - Labs CBC & Chem 7: 08/27/18 18:14 08/27/18 17:12 Labs: Laboratory Last Values WBC 3.0 K/mm3 (4.5-11.0) L 08/27/18 18:14 RBC 3.53 M/mm3 (3.65-5.03) L 08/27/18 18:14 Hgb 10.9 gm/dl (10.1-14.3) 08/27/18 18:14 Hct 32.8 % (30.3-42.9) 08/27/18 18:14 MCV 93 fl (79-97) 08/27/18 18:14 MCH 31 pg (28-32) 08/27/18 18:14 MCHC 33 % (30-34) 08/27/18 18:14 RDW 15.3 % (13.2-15.2) H 08/27/18 18:14 Plt Count 123 K/mm3 (140-440) L 08/27/18 18:14 Lymph % (Auto) [place] 08/27/18 18:14 [place] % (Auto) [place] 08/27/18 18:14 Eos % (Auto) [place] 08/27/18 18:14 Baso % (Auto) [place] 08/27/18 18:14 Lymph # [place] 08/27/18 18:14 [place] # [place] 08/27/18 18:14 Eos # [place] 08/27/18 18:14 Baso # [place] 08/27/18 18:14 Seg Neutrophils % [place] 08/27/18 18:14 Seg Neutrophils # [place] 08/27/18 18:14 PT 13.0 Sec. (12.2-14.9) 08/27/18 17:12 INR 0.93 (0.87-1.13) 08/27/18 17:12 APTT 20.0 Sec. (24.2-36.6) L 08/27/18 17:12 Sodium 134 mmol/L (137-145) L 08/27/18 17:12 Potassium 4.7 mmol/L (3.6-5.0) 08/27/18 17:12 Chloride 103.7 mmol/L (98-107) 08/27/18 17:12 Carbon Dioxide 20 mmol/L (22-30) L 08/27/18 17:12 15 mmol/L 08/27/18 17:12 BUN 16 mg/dL (7-17) 08/27/18 17:12 0.9 mg/dL (0.7-1.2) 08/27/18 17:12 Estimated GFR > 60 ml/min 08/27/18 17:12 18 % 08/27/18 17:12 Glucose 103 mg/dL (65-100) H 08/27/18 17:12 POC Glucose 109 (70-105) H 09/03/18 17:23 Calcium 8.6 mg/dL (8.4-10.2) 08/27/18 17:12 Magnesium 1.90 mg/dL (1.7-2.3) 08/27/18 17:17 46 units/L (30-135) 08/28/18 12:31 CK-MB (CK-2) 2.0 ng/mL (0.0-4.0) 08/28/18 12:31 CK-MB (CK-2) Rel Index 4.3 (0-4) H 08/28/18 12:31 < 0.010 ng/mL (0.00-0.029) 08/28/18 12:31 Triglycerides 77 mg/dL (2-149) 08/29/18 04:55 Cholesterol 173 mg/dL (50-199) 08/29/18 04:55 109 mg/dL (50-130) 08/29/18 04:55 46 mg/dL (40-59) 08/29/18 04:55 3.76 % 08/29/18 04:55 TSH 1.190 mlU/mL (0.270-4.200) 08/27/18 17:17 Straw (Yellow) 08/27/18 19:02 Clear (Clear) 08/27/18 19:02 5.0 (5.0-7.0) 08/27/18 19:02 Ur Specific [place] 1.019 (1.003-1.030) 08/27/18 19:02 <15 mg/dl mg/dL (Negative) 08/27/18 19:02 Neg mg/dL (Negative) 08/27/18 19:02 Neg mg/dL (Negative) 08/27/18 19:02 Neg (Negative) 08/27/18 19:02 Pos (Negative) 08/27/18 19:02 Neg (Negative) 08/27/18 19:02 < 2.0 mg/dL (<2.0) 08/27/18 19:02 Ur Leukocyte Esterase Neg (Negative) 08/27/18 19:02 1.0 /HPF (0.0-6.0) 08/27/18 19:02 < 1.0 /HPF (0.0-6.0) 08/27/18 19:02 U Epithel Cells (Auto) 1.0 /HPF (0-13.0) 08/27/18 19:02 1+ /HPF (Negative) 08/27/18 19:02 Few /HPF 08/27/18 19:02 Salicylates < 0.3 mg/dL (2.8-20.0) L 08/27/18 17:17 Acetaminophen < 5.0 ug/mL (10.0-30.0) L 08/27/18 17:17 Plasma/Serum Alcohol < 0.01 % (0-0.07) 08/27/18 17:12 Active Medications - Current Medications Current Medications: Generic Name Dose Route Start Last Admin Trade Name Freq PRN Reason Stop Dose Admin Acetaminophen 650 mg 08/28/18 13:00 Tylenol PO Q4H PRN Pain, Mild (1-3) Albuterol 2.5 mg 08/28/18 12:25 Proventil IH Q3HRT PRN Shortness Of Breath Aspirin 325 mg 08/28/18 10:00 09/03/18 09:45 Aspirin PO 325 mg QDAY QUE Administration Benztropine Mesylate 2 mg 08/28/18 10:00 09/03/18 09:44 Cogentin PO 2 mg DAILY QUE Administration Chlorpromazine HCl 50 mg 08/28/18 10:00 09/03/18 22:47 Thorazine PO 50 mg BID QUE Administration Citalopram Hydrobromide 20 mg 08/28/18 10:00 09/03/18 09:46 Celexa PO 20 mg QDAY QUE Administration Famotidine 20 mg 08/28/18 10:00 09/03/18 22:48 Pepcid PO 20 mg BID QUE Administration Furosemide 40 mg 08/28/18 10:00 09/03/18 09:23 Lasix PO Not Given QDAY QUE Gabapentin 300 mg 08/28/18 10:00 09/03/18 22:47 Neurontin PO 300 mg BID QUE Administration Heparin Sodium (Porcine) 5,000 unit 08/28/18 10:00 09/03/18 22:48 Heparin SUB-Q 5,000 unit Q12HR [facility] Administration Sodium Chloride 500 mls @ 50 mls/hr 08/27/18 17:00 Nacl 0.9% 500 Ml IV DIRECT QUE Magnesium Hydroxide 30 ml 08/28/18 02:28 Milk Of Magnesia PO Q4H PRN Constipation Miscellaneous Medication 4.5 mg 08/28/18 10:00 Cariprazine Hcl [Vraylar] PO DAILY [facility] Miscellaneous Medication 4 mg 08/28/18 10:00 Fesoterodine Fumarate Er PO DAILY [facility] Miscellaneous Medication 234 mg 08/28/18 06:45 Paliperidone Palmitate(Nf) IM Q3W [facility] Ondansetron HCl 4 mg 08/28/18 02:28 Zofran IV Q8H PRN Nausea And Vomiting Potassium Chloride 20 meq 08/28/18 10:00 09/03/18 09:45 K-Dur PO 20 meq QDAY QUE Administration Pravastatin Sodium 40 mg 08/28/18 22:00 09/03/18 22:48 Pravachol PO 40 mg QHS QUE Administration Promethazine HCl 25 mg 08/28/18 02:56 Phenergan PO Q6H PRN Nausea And Vomiting Promethazine HCl 25 mg 08/28/18 02:56 Phenergan [place] Q6H PRN Nausea And Vomiting Sertraline HCl 50 mg 08/28/18 10:00 09/03/18 09:46 Zoloft PO 50 mg QDAY QUE Administration Sodium Chloride 10 ml 08/28/18 10:00 09/04/18 00:13 Sodium Chloride Flush Syringe 10 Ml IV Not Given BID QUE Sodium Chloride 10 ml 08/28/18 12:30 08/31/18 22:21 Sodium Chloride Flush Syringe 10 Ml IV 10 ml PRN PRN Administration LINE FLUSH Nutrition/Malnutrition Assess - Dietary Evaluation Nutrition/Malnutrition Findings: Nutrition Notes Start: 08/28/18 15:25 Freq: Status: Active Protocol: Document 09/03/18 15:46 RM (Rec: 09/03/18 15:48 RM [id number]) Nutrition Notes Initial or Follow up Brief Note Current Diagnosis Heart Failure Other Pertinent Diagnosis s/p fall, syncopal episodes, dementia Current Diet Cardiac Labs/Tests Reviewed Pertinent Medications Reviewed Height 5 ft 9 in Weight 101.2 kg [place] Body Weight (kg) 65.90 BMI 32.9 Subjective/Other Information Pt asleep at time of visit. Recorded PO intake 100% X 2 meals. Burn Absent Trauma Absent Nutrition Intervention Revisit per MD consult or patient Sign Off request:
[2018-09-04] MEDS: ZOLOFT PO SCH (09:39)
[2018-09-04] MEDS: PEPCID PO SCH ×2 (09:39→23:11)
[2018-09-04] MEDS: THORAZINE PO SCH ×2 (09:39→23:11)
[2018-09-04] MEDS: K-DUR PO SCH (09:39)
[2018-09-04] MEDS: LASIX PO SCH (09:39)
[2018-09-04] MEDS: COGENTIN PO SCH (09:39)
[2018-09-04] MEDS: celeXA PO SCH (09:39)
[2018-09-04] MEDS: ASPIRIN PO SCH (09:39)
[2018-09-04] MEDS: NEURONTIN PO SCH ×2 (09:39→23:11)
[2018-09-04] MEDS: HEPARIN SUB-Q SCH ×2 (09:40→23:12)
[2018-09-04] MEDS: PRAVACHOL PO SCH (23:11)
--- NOTE | 2018-09-05 07:35 | Progress Note ---
Assessment and Plan Assessment and plan: --Syncope: No new episodes of syncope , fall precautions Echocardiogram that reveals left ventricular chamber size and contractility that is normal with EF 55-60% and left ventricular diastolic filling pattern consistent with elevated left ventricular end-diastolic pressure. Carotid Doppler does reveal smooth plaque bilaterally with bilateral distal internal carotid artery suggesting ICA stenosis of 50-79%. --ICA stenosis. Follow-up with vascular surgery as an outpatient. Continue antiplatelets and statins --Hypertension : Continue antihypertensive medications. No new episodes of syncope --COPD:Well Compensated. Continue nebs as needed --CHF. Compensated. --Peripheral neuropathy. --History of schizophrenia --Gait instability. Continue PT/OT. Physical therapy recommends subacute rehabilitation. Pending placement Disposition. Await rehabilitation placement level II clearance as patient has history of schizophrenia . Hospitalist Physical - Constitutional Vitals: Temp Pulse Resp BP Pulse Ox 98.0 F 69 20 107/62 96 09/05/18 05:34 09/05/18 05:34 09/05/18 05:34 09/05/18 05:34 09/05/18 05:34 General appearance: Present: no acute distress, well-nourished, obese Results - Labs CBC & Chem 7: 08/27/18 18:14 08/27/18 17:12 Labs: Laboratory Last Values WBC 3.0 K/mm3 (4.5-11.0) L 08/27/18 18:14 RBC 3.53 M/mm3 (3.65-5.03) L 08/27/18 18:14 Hgb 10.9 gm/dl (10.1-14.3) 08/27/18 18:14 Hct 32.8 % (30.3-42.9) 08/27/18 18:14 MCV 93 fl (79-97) 08/27/18 18:14 MCH 31 pg (28-32) 08/27/18 18:14 MCHC 33 % (30-34) 08/27/18 18:14 RDW 15.3 % (13.2-15.2) H 08/27/18 18:14 Plt Count 123 K/mm3 (140-440) L 08/27/18 18:14 Lymph % (Auto) Commercial [employer] Manager 08/27/18 18:14 [place] % (Auto) Commercial Intelligence Manager 08/27/18 18:14 Eos % (Auto) Commercial Intelligence Manager 08/27/18 18:14 Baso % (Auto) Commercial Intelligence Manager 08/27/18 18:14 Lymph # Commercial Intelligence Manager 08/27/18 18:14 [place] # Commercial Intelligence Manager 08/27/18 18:14 Eos # Commercial Intelligence Manager 08/27/18 18:14 Baso # Commercial Intelligence Manager 08/27/18 18:14 Seg Neutrophils % Commercial Intelligence Manager 08/27/18 18:14 Seg Neutrophils # Commercial Intelligence Manager 08/27/18 18:14 PT 13.0 Sec. (12.2-14.9) 08/27/18 17:12 INR 0.93 (0.87-1.13) 08/27/18 17:12 APTT 20.0 Sec. (24.2-36.6) L 08/27/18 17:12 Sodium 134 mmol/L (137-145) L 08/27/18 17:12 Potassium 4.7 mmol/L (3.6-5.0) 08/27/18 17:12 Chloride 103.7 mmol/L (98-107) 08/27/18 17:12 Carbon Dioxide 20 mmol/L (22-30) L 08/27/18 17:12 15 mmol/L 08/27/18 17:12 BUN 16 mg/dL (7-17) 08/27/18 17:12 0.9 mg/dL (0.7-1.2) 08/27/18 17:12 Estimated GFR > 60 ml/min 08/27/18 17:12 18 % 08/27/18 17:12 Glucose 103 mg/dL (65-100) H 08/27/18 17:12 POC Glucose 109 (70-105) H 09/03/18 17:23 Calcium 8.6 mg/dL (8.4-10.2) 08/27/18 17:12 Magnesium 1.90 mg/dL (1.7-2.3) 08/27/18 17:17 46 units/L (30-135) 08/28/18 12:31 CK-MB (CK-2) 2.0 ng/mL (0.0-4.0) 08/28/18 12:31 CK-MB (CK-2) Rel Index 4.3 (0-4) H 08/28/18 12:31 < 0.010 ng/mL (0.00-0.029) 08/28/18 12:31 Triglycerides 77 mg/dL (2-149) 08/29/18 04:55 Cholesterol 173 mg/dL (50-199) 08/29/18 04:55 109 mg/dL (50-130) 08/29/18 04:55 46 mg/dL (40-59) 08/29/18 04:55 3.76 % 08/29/18 04:55 TSH 1.190 mlU/mL (0.270-4.200) 08/27/18 17:17 Straw (Yellow) 08/27/18 19:02 Clear (Clear) 08/27/18 19:02 5.0 (5.0-7.0) 08/27/18 19:02 Ur Specific [place] 1.019 (1.003-1.030) 08/27/18 19:02 <15 mg/dl mg/dL (Negative) 08/27/18 19:02 Neg mg/dL (Negative) 08/27/18 19:02 Neg mg/dL (Negative) 08/27/18 19:02 Neg (Negative) 08/27/18 19:02 Pos (Negative) 08/27/18 19:02 Neg (Negative) 08/27/18 19:02 < 2.0 mg/dL (<2.0) 08/27/18 19:02 Ur Leukocyte Esterase Neg (Negative) 08/27/18 19:02 1.0 /HPF (0.0-6.0) 08/27/18 19:02 < 1.0 /HPF (0.0-6.0) 08/27/18 19:02 U Epithel Cells (Auto) 1.0 /HPF (0-13.0) 08/27/18 19:02 1+ /HPF (Negative) 08/27/18 19:02 Few /HPF 08/27/18 19:02 Salicylates < 0.3 mg/dL (2.8-20.0) L 08/27/18 17:17 Acetaminophen < 5.0 ug/mL (10.0-30.0) L 08/27/18 17:17 Plasma/Serum Alcohol < 0.01 % (0-0.07) 08/27/18 17:12 Active Medications - Current Medications Current Medications: Generic Name Dose Route Start Last Admin Trade Name Freq PRN Reason Stop Dose Admin Acetaminophen 650 mg 08/28/18 13:00 Tylenol PO Q4H PRN Pain, Mild (1-3) Albuterol 2.5 mg 08/28/18 12:25 Proventil IH Q3HRT PRN Shortness Of Breath Aspirin 325 mg 08/28/18 10:00 09/04/18 09:39 Aspirin PO 325 mg QDAY QUE Administration Benztropine Mesylate 2 mg 08/28/18 10:00 09/04/18 09:39 Cogentin PO 2 mg DAILY QUE Administration Chlorpromazine HCl 50 mg 08/28/18 10:00 09/04/18 23:11 Thorazine PO 50 mg BID QUE Administration Citalopram Hydrobromide 20 mg 08/28/18 10:00 09/04/18 09:39 Celexa PO 20 mg QDAY QUE Administration Famotidine 20 mg 08/28/18 10:00 09/04/18 23:11 Pepcid PO 20 mg BID QUE Administration Furosemide 40 mg 08/28/18 10:00 09/04/18 09:39 Lasix PO 40 mg QDAY QUE Administration Gabapentin 300 mg 08/28/18 10:00 09/04/18 23:11 Neurontin PO 300 mg BID QUE Administration Heparin Sodium (Porcine) 5,000 unit 08/28/18 10:00 09/04/18 23:12 Heparin SUB-Q 5,000 unit Q12HR QUE Administration Sodium Chloride 500 mls @ 50 mls/hr 08/27/18 17:00 Nacl 0.9% 500 Ml IV DIRECT QUE Magnesium Hydroxide 30 ml 08/28/18 02:28 Milk Of Magnesia PO Q4H PRN Constipation Miscellaneous Medication 4.5 mg 08/28/18 10:00 Cariprazine Hcl [Vraylar] PO DAILY [facility] Miscellaneous Medication 4 mg 08/28/18 10:00 Fesoterodine Fumarate Er PO DAILY [facility] Miscellaneous Medication 234 mg 08/28/18 06:45 Paliperidone Palmitate(Nf) IM Q3W [facility] Ondansetron HCl 4 mg 08/28/18 02:28 Zofran IV Q8H PRN Nausea And Vomiting Potassium Chloride 20 meq 08/28/18 10:00 09/04/18 09:39 K-Dur PO 20 meq QDAY QUE Administration Pravastatin Sodium 40 mg 08/28/18 22:00 09/04/18 23:11 Pravachol PO 40 mg QHS QUE Administration Promethazine HCl 25 mg 08/28/18 02:56 Phenergan PO Q6H PRN Nausea And Vomiting Promethazine HCl 25 mg 08/28/18 02:56 Phenergan CA Q6H PRN Nausea And Vomiting Sertraline HCl 50 mg 08/28/18 10:00 09/04/18 09:39 Zoloft PO 50 mg QDAY QUE Administration Sodium Chloride 10 ml 08/28/18 10:00 09/04/18 23:12 Sodium Chloride Flush Syringe 10 Ml IV 10 ml BID QUE Administration Sodium Chloride 10 ml 08/28/18 12:30 08/31/18 22:21 Sodium Chloride Flush Syringe 10 Ml IV 10 ml PRN PRN Administration LINE FLUSH Nutrition/Malnutrition Assess - Dietary Evaluation Nutrition/Malnutrition Findings: Nutrition Notes Start: 08/28/18 15:25 Freq: Status: Active Protocol: Document 09/03/18 15:46 RM (Rec: 09/03/18 15:48 RM [id number]) Nutrition Notes Initial or Follow up Brief Note Current Diagnosis Heart Failure Other Pertinent Diagnosis s/p fall, syncopal episodes, dementia Current Diet Cardiac Labs/Tests Reviewed Pertinent Medications Reviewed Height 5 ft 9 in Weight 101.2 kg [place] Body Weight (kg) 65.90 BMI 32.9 Subjective/Other Information Pt asleep at time of visit. Recorded PO intake 100% X 2 meals. Burn Absent Trauma Absent Nutrition Intervention Revisit per MD consult or patient Sign Off request:
[2018-09-05] MEDS: LASIX PO SCH (10:48)
[2018-09-05] MEDS: ZOLOFT PO SCH (10:48)
[2018-09-05] MEDS: K-DUR PO SCH (10:48)
[2018-09-05] MEDS: ASPIRIN PO SCH (10:48)
[2018-09-05] MEDS: celeXA PO SCH (10:48)
[2018-09-05] MEDS: NEURONTIN PO SCH (10:48)
[2018-09-05] MEDS: HEPARIN SUB-Q SCH (10:49)
[2018-09-05] MEDS: PEPCID PO SCH (10:49)
[2018-09-05] MEDS: SODIUM CHLORIDE FLUSH SYRINGE 10 ML IV SCH (10:49)
[2018-09-05] MEDS: THORAZINE PO SCH (15:22)
[2018-09-05] MEDS: COGENTIN PO SCH (15:22)
--- NOTE | 2018-09-05 15:31 | Discharge Summary ---
Providers - Providers Date of Admission: 08/31/18 10:49 Date of discharge: 09/05/18 Attending physician: KOURTNEY CHRISTENSEN 08/28/18 02:29 Occupational Therapy Evaluate and Treat [CONS] Routine Comment: Reason For Exam: Neuro deficits Physical Therapy Evaluation and Treat [CONS] Routine Comment: Reason For Exam: Neuro deficits 08/28/18 08:48 Consult to Case Management [CONS] Routine Services Needed at Discharge: Home Health Services Notified:: case management Additional Physician Instructions: dc plan Consult to Dietitian/Nutrition [CONS] Routine Physician Instructions: Reason For Exam: Reason for Consult: Nutrition Recommendations Reason for Consult: Diet education Occupational Therapy Evaluate and Treat [CONS] Routine Comment: Reason For Exam: Neuro deficits Physical Therapy Evaluation and Treat [CONS] Routine Comment: Reason For Exam: Neuro deficits [facility] Reason for admission: syncopeSyncope Condition: Stable Pertinent studies: CT head without contrast MRA MRI Carotid Doppler:Smooth plaque milagro,bilateral distal ICA stenosis 50-79% On antiplatelets and statins, follow-up with private vascular upon discharge CTA chest CT cervical spine Face CT Echocardiogram Hospital course: Patient is a 58-year-old female was brought to the ER by EMS after she fell at home, she presented with a frontal and nasal laceration which required suturing. Patient was awake and alert on admission, but she was unable to provide medical history due to dementia, she could not recall exactly the circumstances that brought her to the hospital, she remember falling in the concrete floor, she was unable to stand up and her son found her on the floor. Pt was alert and oriented to name only, she was disoriented to time, place and current events, no family member was available . Admitting and symptomatically managed, had neuro w/u, patient's registered Assessment physical therapy, initially SNF placement was planned however later family decided to take him home with home PT and home health services. Patient is hemodynamically and clinically stable at discharge Discharge diagnosis; --Syncope: No new episodes of syncope , fall precautions Echocardiogram that reveals left ventricular chamber size and contractility that is normal with EF 55-60% and left ventricular diastolic filling pattern consistent with elevated left ventricular end-diastolic pressure. Carotid Doppler does reveal smooth plaque bilaterally with bilateral distal internal carotid artery suggesting ICA stenosis of 50-79%. --ICA stenosis. Follow-up with vascular surgery as an outpatient. Continue antiplatelets and statins --Hypertension : Continue antihypertensive medications. No new episodes of syncope --COPD:Well Compensated. Continue nebs as needed --CHF. Compensated. --Peripheral neuropathy. --History of schizophrenia --Gait instability. Continue PT/OT. Physical therapy recommends subacute rehabilitation. Vs home [facility] Disposition: [id number] HOME UNDER HOME [facility] Time spent for discharge: 32 min Core Measure Documentation - Palliative Care Palliative Care/ Comfort Measures: Not Applicable - Core Measures Any of the following diagnoses?: none Exam - Constitutional Vitals: Temp Pulse Resp BP Pulse Ox 98.1 F 74 22 97/56 97 09/05/18 12:10 09/05/18 12:10 09/05/18 12:10 09/05/18 12:10 09/05/18 12:10 General appearance: Present: no acute distress, well-nourished, obese - Neck Neck: Present: supple, normal ROM - Respiratory Respiratory effort: normal Respiratory: bilateral: diminished, negative: rales, rhonchi, wheezing - Cardiovascular Rhythm: regular Heart Sounds: Present: S1 & S2 - Extremities Extremities: no ischemia, No edema - Abdominal General gastrointestinal: Present: soft, non-tender - Integumentary Integumentary: Present: clear, warm - Musculoskeletal Musculoskeletal: generalized weakness - Psychiatric Psychiatric: appropriate mood/affect, cooperative - Neurologic Neurologic: moves all extremities Plan Activity: advance as tolerated, fall precautions Diet: other (cardiac diet) Special Instructions: physical therapy Additional Instructions: Fall precautions. Advised to see private vascular for further evaluation of carotid stenosis. Advised to follow with primary ps ychiatrist per schedule. You are on many psych medications, advised to check with primary care physician/psychiatric just for medication review and adjustment [facility]Primary Care Provider[facility] - 3-5 Days THELMA [facility] MD [Staff Physician] - 7 Days Prescriptions: Aspirin EC 81 mg PO QDAY #30 tablet.
[2018-09-05 18:35] VITALS: BP 128/66
== END 2018-09-05 20:38 | disposition home health service (06) | DRG 264 ==
LOC: ED 15:58 → INTOOBSV 21:11 → 4A 21:11 → ED 08-28 01:20 → OBSVTOIN 08-28 10:28 → INTOOBSV 08-28 10:28 → OBSVTOIN 08-31 10:49 → 3A 09-04 15:08
PROVIDERS: ADMIT Internal Medicine; ATTEND Internal Medicine
PROC: 09QKXZZ Repair Nasal Mucosa and Soft Tissue, External Approach (ICD-10-PCS; principal; 2018-08-27)
PROC: 3E0234Z Introduction of Serum, Toxoid and Vaccine into Muscle, Percutaneous Approach (ICD-10-PCS; 2018-08-28)
DX: R55 Syncope and collapse (principal); S01.21XA Laceration without foreign body of nose, initial encounter; I65.21 Occlusion and stenosis of right carotid artery; I11.0 Hypertensive heart disease with heart failure; M19.90 Unspecified osteoarthritis, unspecified site; I50.9 Heart failure, unspecified; J44.9 Chronic obstructive pulmonary disease, unspecified; G62.9 Polyneuropathy, unspecified; F03.90 Unspecified dementia, unspecified severity, without behavioral disturbance, psychotic disturbance, mood disturbance, and anxiety; F20.9 Schizophrenia, unspecified; F41.9 Anxiety disorder, unspecified; W18.39XA Other fall on same level, initial encounter; R26.89 Other abnormalities of gait and mobility; K76.89 Other specified diseases of liver; Z79.899 Other long term (current) drug therapy; Y93.89 Activity, other specified; Y92.89 Other specified places as the place of occurrence of the external cause; Y99.8 Other external cause status; Z23 Encounter for immunization
CPT/HCPCS: 36415; 70450; 70486; 70544; 70551; 71045; 71275; 72125; 80048; 80061; 80320; 81001; 82550; 82553; 82962; 83735; 84443; 84484; 85025; 85610; 85730; 90686; 90732; 93005; 93010; 93306; 93880; 94640; G0378; A9270-GY; G0480; J0696; J1644; J7030; J7040; Q0161; Q9967